=== PATIENT | male | born 1940 | race Caucasian/White ===

== ENCOUNTER 2016-11-05 06:06 | Day surgery (SDC) | payer MEDICARE, OTHER ==
[~2016-11-05] VITALS: Ht 170.2 cm; Wt 73.9 kg
[~2016-11-05 06:06] MED LIST: ACET325T9 PO; ATOR10TA60 PO; CARV3.122 PO; LISI10TA2 PO; METF500T4 PO; PRED20TA PO; UNABLE MC; VALA500T PO
[2016-11-05 06:28] LABS: BILIRUBIN,URINE NEGATIVE (NEG); GLUCOSE,URINE NEGATIVE (NEG); NITRITE,URINE NEGATIVE (NEG); PROTEIN,URINE NEGATIVE (NEG-TRACE)
[2016-11-05 06:42] LABS: BASO % 1 % (0-3); EOS % 4 % (0-3); HEMATOCRIT 39.7 % (39.0-53.0); HEMOGLOBIN 13.6 g/dL (13.0-17.5); LYMPH # 1.3 x10^3/uL (1.0-4.8); LYMPH % 24 % (24-48); MEAN CORPUSCULAR HEMOGLOBIN 31 pg (25-35); MEAN CORPUSCULAR HGB CONC 34 g/dL (31-37); MEAN CORPUSCULAR VOLUME 90 fL (79-100); MONO % 10 % (0-9); NEUT % 62 % (31-73); PLATELET COUNT 182 x10^3/uL (140-400); RED BLOOD COUNT 4.44 x10^6/uL (4.30-5.70); RED CELL DISTRIBUTION WIDTH 13.5 % (11.5-14.5); WHITE BLOOD COUNT 5.4 x10^3/uL (4.0-11.0)
[2016-11-05 06:45] LABS: BACTERIA,URINE FEW /HPF (0-FEW); RBC,URINE OCC /HPF (0-2); SQUAMOUS EPITHELIAL CELL,UR OCC /LPF
[2016-11-05 06:51] LABS: CALCIUM 8.9 mg/dL (8.5-10.1); CREATININE 1.2 mg/dL (0.7-1.3); GFR 58.9; POTASSIUM 3.9 mmol/L (3.5-5.1)
[2016-11-05] MEDS ORDERED: HYDROmorphone 2 MG/ML VIAL IV PRN (07:00)
[2016-11-05] MEDS ORDERED: LIDOCAINE 1% 1 ML SYRINGE. ID PRN (07:00)
[2016-11-05] MEDS ORDERED: PROCHLORPERAZINE 10 MG/2 ML VIAL. IV PRN (07:00)
[2016-11-05] MEDS ORDERED: IV RINGERS,LACTATED 1000ML 1,000 ML IV SCH (07:00)
[2016-11-05] MEDS ORDERED: MORPHINE SULFATE 2 MG/ML DISP.SYRIN. IV PRN (07:00)
[2016-11-05] MEDS ORDERED: ONDANSETRON PF 4 MG/2 ML VIAL. IV PRN (07:00)
[2016-11-05] MEDS ORDERED: fentaNYL PF VIAL 100 MCG/2 ML VIAL IV PRN ×2 (07:00)
[2016-11-05] MEDS ORDERED: GENTAMICIN SULFATE 80 MG in IV NORMAL SALINE 100ML 100 ML IV PRN (08:00)
[2016-11-05] MEDS ORDERED: PROPOFOL 20 ML IV ONE ×2 (08:49)
[2016-11-05] MEDS ORDERED: SEVOFLURANE 31 TO 60 MINUTES. IH ONE (08:49)
[2016-11-05] MEDS ORDERED: ONDANSETRON PF 4 MG/2 ML VIAL. ONE (08:49)
[2016-11-05] MEDS ORDERED: LIDOCAINE 2% PF Vial for OR 5 ML VIAL. ONE (08:49)
[2016-11-05] MEDS ORDERED: DEXAMETHASONE SOD PHOS 20 MG/5 ML VIAL. ONE (08:49)
--- NOTE | 2016-11-05 08:49 | PDOC ---
BRIEF OPERATIVE NOTE Date: Nov 05, 2016 Pre-Op Diagnosis Elevated PSA (9.0) Post-Op Diagnosis same Procedure Performed Trans rectal ultrasound ultrasound guided prostate biopsies Surgeon Angeles Anesthesia Type: General Specimens Obtained 12 biopsies of prostate Findings same Complications none Additional Remarks tolerated well JASMYN AJ DO Nov 05, 2016 08:49
--- NOTE | 2016-11-05 08:51 | DISCH ---
DISCHARGE INSTRUCTIONS Condition on Discharge Condition on Discharge: Stable Activity After Discharge Activity Instructions for Disc: Activity as tolerated, Avoid exertion Driving Instructions after Dis: Do not drive today Diet after Discharge Diet after Discharge: Regular Additional Diet Restrictions: increase fluids next couple days Wound Incision Care Other wound/incision instructi: expect to see blood in urine and first BM Contacting the DRMaulik after DC Call your doctor for: Concerns you may have Follow-Up Follow up with: Dr Aj will call you with results JASMYN AJ DO Nov 05, 2016 08:51
[2016-11-05 09:26] VITALS: BP 119/68
--- NOTE | 2016-11-05 10:18 | OP ---
DATE OF SURGERY: PREOPERATIVE DIAGNOSIS: Elevated PSA (9.0). POSTOPERATIVE DIAGNOSIS: Elevated PSA (9.0). PROCEDURE: Transrectal ultrasound of prostate, ultrasound-guided prostate biopsies (12). SURGEON: Jasmyn Aj DO ANESTHESIA: General. INDICATIONS AND JUDGMENT: This is a 76-year-old male with a history of an elevated PSA. Most recently, his PSA was 9.0. The percent free PSA was only 6%. Therefore, it was felt that he should undergo prostate ultrasound and needle biopsies. The procedure was explained to the patient. He appeared to understand and was agreeable. DESCRIPTION OF PROCEDURE: The patient was preloaded with IV Rocephin and 80 mg of gentamicin. He was taken to the operating room and placed on the operating room table in a supine position, given a general anesthetic and then placed in a left lateral position with his knees tucked. A well-lubricated ultrasound probe was then advanced into the rectum. The prostate was visualized in the transverse and sagittal modes. There did appear to be some hypoechoic areas. The prostate volume was measured at 21 grams. Using ultrasound guidance, prostate biopsies were performed initially on the left side of the prostate from the apex to the base and then moved a little more medially and once again a series of biopsies from the apex to the base, a total of 6 biopsies performed on the left side of the prostate. The ultrasound probe was then repositioned to visualize the right side of the prostate and ultrasound-guided biopsies were taken on the right side of the prostate from the apex to the base and then the probe was adjusted and moved medially to get another series of biopsies on the right side from the apex to the base, a total of 6 biopsies were taken on the right side of the prostate for a total of 12 biopsies. The ultrasound probe was then removed from the rectum. The biopsies were placed in formalin and sent to pathology. The patient tolerated the procedure well and was sent to recovery room in satisfactory condition. The patient has a postop instruction sheet at home. He also has Cipro antibiotics at home that he will complete. I will call him next week with the results of the prostate biopsies. JASMYN AJ DO DR: ALBERTO/janet JOB#: [id number] / [id number]
--- NOTE | 2016-11-09 16:39 | PATHOLOGY ---
PATHOLOGY REPORT * * * * * * * * FINAL DIAGNOSIS: A. Left base prostate, needle biopsy: - PROSTATIC ADENOCARCINOMA, ACINAR TYPE, GUSTAVO'S PATTERNS 4+4 (SCORE 8), SPANNING 0.1 MM. (SEE COMMENT) B. Left mid prostate, needle biopsy: - PROSTATIC ADENOCARCINOMA, ACINAR TYPE, GUSTAVO'S PATTERNS 3+3 (SCORE 6), SPANNING 1.0 MM. (SEE COMMENT) C. Left apex prostate, needle biopsy: - PROSTATIC ADENOCARCINOMA, ACINAR TYPE, GUSTAVO'S PATTERNS 4+4 (SCORE 8), SPANNING 5.0 MM. (SEE COMMENT) D. Right base prostate, needle biopsy: - PROSTATIC ADENOCARCINOMA, ACINAR TYPE, GUSTAVO'S PATTERNS 4+3 (SCORE 7), SPANNING 5.0 MM. (SEE COMMENT) E. Right mid prostate, needle biopsy: - Benign prostatic tissue. (see comment) F. Right apex prostate, needle biopsy: - PROSTATIC ADENOCARCINOMA, ACINAR TYPE, GUSTAVO'S PATTERNS 3+3 (SCORE 6), SPANNING 2.0 MM. (SEE COMMENT) - Benign colonic mucosa. (see comment) SYNOPTIC CANCER STAGING REPORT - LEFT AND RIGHT (SPECIMENS A-F) COMMENT: Specimens A-F reviewed with Dr. Raghu Henson, who agrees with the diagnoses. Marimar in Dr. Reynoso's office notified at approximately 1545 on 11/09/2016. (STEVE:[facility]; d/t: 11/09/16) REPORT ELECTRONICALLY SIGNED BY: Jg Galeano M.D. DATE/TIME: 11/09/2016 16:37 * * * * * * * * GROSS PATHOLOGY: A . Received in formalin labeled "Livanes, Kasandra, left base" are two needle cores of serrato soft tissue measuring 1.5 and 1.7 cm in length and less than 0.1 cm in diameter. The specimen is submitted entirely in cassette A1. B. Received in formalin labeled "Jakes, Kasandra, left mid" are two needle cores of serrato soft tissue measuring 1.8 and 2.0 cm in length and less than 0.1 cm in diameter. The specimen is submitted entirely in cassette B1. C. Received in formalin labeled "Jakes, Kasandra, left apex" are two needle cores of serrato soft tissue measuring 1.5 and 1.7 cm in length and less than 0.1 cm in diameter. The specimen is submitted entirely in cassette C1. D. Received in formalin labeled "Livanes, Kasandra, right base" are two needle cores of serrato soft tissue measuring 2.0 and 2.2 cm in length and less than 0.1 cm in diameter. The specimen is submitted entirely in cassette D1. E. Received in formalin labeled "Livanes, Kasandra, right mid" are two needle cores of serrato soft tissue measuring 1.5 and 2.2 cm in length and less than 0.1 cm in diameter. The specimen is submitted entirely in cassette E1. F. Received in formalin labeled "Shane, Kasandra, right apex" are two needle cores of serrato soft tissue measuring 1.5 and 1.7 cm in length and less than 0.1 cm in diameter. The specimen is submitted entirely in cassette F1. (JPM; 11/05/16) INITIAL CPT CODE(S): A; 93037 B; 51287 C; 67574 D; 07516 E; 06435 F; 39858 Professional services performed by [facility] at [address] [address] Technical services performed by [facility] at [address] [place] [address], [address], [place] [address]. SPECIMEN(S) RECEIVED: A.Left base prostate, needle biopsy B.Left mid prostate, needle biopsy C.Left apex prostate, needle biopsy D.Right base prostate, needle biopsy E.Right mid prostate, needle biopsy F.Right apex prostate, needle biopsy CLINICAL HISTORY: Elevated PSA PATIENT: KASANDRA VILLASEÑOR /AGE: 12 1940 (Age: 76) PATIENT #: [id number] ALT CASE #: SPECIMEN COLLECTION DATE: 11/05/2016 SPECIMEN RECEIVED DATE: 11/05/2016 [facility] - [address] [place] [address] - PHONE: [phone] * * * END OF REPORT * * *
== END 2016-11-05 10:10 | disposition home or self-care (01) ==
LOC: SURG 06:06
PROVIDERS: ATTEND Urology
DX: R97.20 Elevated prostate specific antigen [PSA] (principal); E78.00 Pure hypercholesterolemia, unspecified; I10 Essential (primary) hypertension; M19.90 Unspecified osteoarthritis, unspecified site; E11.9 Type 2 diabetes mellitus without complications; Z72.0 Tobacco use; Z86.69 Personal history of other diseases of the nervous system and sense organs; Z86.39 Personal history of other endocrine, nutritional and metabolic disease
CPT/HCPCS: 36415; 55700; 80048; 81001; 82962; 85027; J0690; J1100; J2405; J2704; C1887

== ENCOUNTER → 2016-11-29 | Outpatient (CLI) | payer MEDICARE, OTHER ==
[2016-11-05 09:26] VITALS: BP 119/68
[~2016-11-29] MED LIST changes: +LEUP30SY IM
--- NOTE | 2016-11-29 11:33 | RAD ---
Indication prostate malignancy. Staging. Axial images through the abdomen and pelvis were obtained. The study is limited. No IV or gastrointestinal contrast was administered. Note is made of a previous examination 11/04/2014. The lung bases are clear. The liver and spleen appear unremarkable. Cholelithiasis is noted. No adrenal or renal anomalies are seen. The pancreas appears unremarkable. An acute finding in the abdomen is not seen. There is no significant central or retroperitoneal adenopathy. In the pelvis no acute finding is seen. There is no significant adenopathy. The visualized bony structures are grossly unremarkable apart from degenerative change predominantly in the lumbar spine. If skeletal metastatic disease is clinically suspect bone scan would be useful. There is slight compression involving L1 similar to the previous exam. IMPRESSION: No acute or significant finding seen in the abdomen or pelvis PQRS Compliance Statement: One or more of the following individualized dose reduction techniques were utilized for this examination: 1. Automated exposure control 2. Adjustment of the mA and/or kV according to patient size 3. Use of iterative reconstruction technique
== END | disposition home or self-care (01) ==
LOC: CT 08:00
PROVIDERS: ATTEND Urology
DX: C61 Malignant neoplasm of prostate (principal)
CPT/HCPCS: 74176

== ENCOUNTER → 2016-12-21 | Outpatient (CLI) | payer MEDICARE, OTHER ==
[~2016-12-21] VITALS: Ht 170.2 cm; Wt 71.7 kg
[2016-12-21 10:22] VITALS: BP 122/75
--- NOTE | 2016-12-21 13:05 | RAD ---
Ultrasound-guided prostate fiducial marker placements, 12/21/2016: History: Prostate cancer Utilizing sonographic guidance and a transrectal approach, 3 Civco prostate fiducial markers were placed. The first marker was placed superiorly in the left lobe of the gland. The second marker was placed inferiorly in the left lobe of the gland. The third marker was placed centrally in the right lobe of the gland. The patient tolerated the procedure well and left the department in good condition. He is to follow up with Dr. Ambrose.
== END | disposition home or self-care (01) ==
LOC: US 09:50
PROVIDERS: ATTEND Radiology Radiation Oncology
DX: C61 Malignant neoplasm of prostate (principal)
CPT/HCPCS: 55876; 77387

== ENCOUNTER 2017-12-04 20:49 | Emergency (ER) | payer MEDICARE, OTHER ==
[2017-12-04] MEDS: DIPHTH,PERTUSS(ACELL),TET TOX 0.5 ML DISP.SYRIN. VAX IM (21:19)
== END 2017-12-04 21:30 | disposition home or self-care (01) ==
LOC: ER 21:30
DX: S80.862A Insect bite (nonvenomous), left lower leg, initial encounter (principal); I10 Essential (primary) hypertension; E11.9 Type 2 diabetes mellitus without complications; I25.2 Old myocardial infarction; W57.XXXA Bitten or stung by nonvenomous insect and other nonvenomous arthropods, initial encounter; Y93.89 Activity, other specified; Y99.8 Other external cause status; Y92.89 Other specified places as the place of occurrence of the external cause
CPT/HCPCS: 90471; 90715; 99283-25

== ENCOUNTER → 2018-02-16 | Day surgery (SDC) | payer MEDICARE, OTHER ==
[~2018-02-16] MED LIST changes: +ASPI-630 PO; +DOXY100C2 PO; +IV RINGERS,LACTATED 1000ML 1,000 ML IV SCH; +LIDOCAINE 1% PF 2 ML VIAL. ID PRN; +METF10007 PO; +METF500T16 PO; -METF500T4 PO; +MIDAZOLAM HCL/PF 2 MG/2 ML VIAL. IV PRN; +NAPR1TAB25 PO; +PROPOFOL 20 ML IV ONE; +TAMS0.4C97 PO; +ePHEDrine PF IN SALINE 50 MG/5 ML DISP.SYRIN IV ONE; +fentaNYL PF VIAL 100 MCG/2 ML VIAL IV PRN
[2018-02-16 13:35] VITALS: BP 117/58
== END | disposition home or self-care (01) ==
LOC: ENDOS 11:13
PROVIDERS: ATTEND Internal Medicine Gastroenterology
DX: K57.30 Diverticulosis of large intestine without perforation or abscess without bleeding (principal); K64.1 Second degree hemorrhoids; K55.21 Angiodysplasia of colon with hemorrhage; E11.9 Type 2 diabetes mellitus without complications; I25.10 Atherosclerotic heart disease of native coronary artery without angina pectoris; Z85.46 Personal history of malignant neoplasm of prostate; Z98.890 Other specified postprocedural states; Z79.84 Long term (current) use of oral hypoglycemic drugs; Z79.899 Other long term (current) drug therapy
CPT/HCPCS: 45378; J2704

== ENCOUNTER 2019-01-28 12:27 | Inpatient (IN) | payer MEDICARE, OTHER ==
[~2019-01-28] VITALS: Ht 162.6 cm; Wt 69.9 kg
[~2019-01-28 12:27] MED LIST changes: +CARV3.1210 PO; -CARV3.122 PO; +FINA5TAB4 PO; +HYDR25SU18 RC; -IV RINGERS,LACTATED 1000ML 1,000 ML IV SCH; -LIDOCAINE 1% PF 2 ML VIAL. ID PRN; -MIDAZOLAM HCL/PF 2 MG/2 ML VIAL. IV PRN; -PROPOFOL 20 ML IV ONE; +SENN8.6T99 PO; -ePHEDrine PF IN SALINE 50 MG/5 ML DISP.SYRIN IV ONE; -fentaNYL PF VIAL 100 MCG/2 ML VIAL IV PRN
[2019-01-28 13:10] LABS: BASO % 1 % (0-3); EOS # 0.2 x10^3/uL (0.0-0.7); EOS % 4 % (0-3); HEMOGLOBIN 12.4 g/dL (13.0-17.5); LYMPH % 22 % (24-48); MEAN CORPUSCULAR HEMOGLOBIN 30 pg (25-35); MEAN CORPUSCULAR HGB CONC 34 g/dL (31-37); MEAN CORPUSCULAR VOLUME 88 fL (79-100); MONO # 0.4 x10^3/uL (0.0-1.1); MONO % 9 % (0-9); NEUT # 3.1 x10^3/uL (1.8-7.7); NEUT % 64 % (31-73); PLATELET COUNT 204 x10^3/uL (140-400); RED BLOOD COUNT 4.09 x10^6/uL (4.30-5.70); RED CELL DISTRIBUTION WIDTH 14.6 % (11.5-14.5); WHITE BLOOD COUNT 4.8 x10^3/uL (4.0-11.0)
[2019-01-28 13:23] LABS: PROTHROMBIN TIME PATIENT 13.3 SEC (11.7-14.0)
[2019-01-28 13:25] LABS: CREATININE 1.2 mg/dL (0.7-1.3); GFR 58.6; POTASSIUM 4.1 mmol/L (3.5-5.1)
[2019-01-28 13:31] LABS: ALBUMIN 3.9 g/dL (3.4-5.0); DIRECT BILIRUBIN 0.1 mg/dL (0.0-0.2); TOTAL BILIRUBIN 0.6 mg/dL (0.2-1.0); TOTAL PROTEIN 7.1 g/dL (6.4-8.2)
[2019-01-28 13:46] LABS: BILIRUBIN,URINE NEGATIVE (NEG); COLOR,URINE YELLOW; NITRITE,URINE NEGATIVE (NEG); PH,URINE 7.5; PROTEIN,URINE NEGATIVE (NEG-TRACE); UROBILINOGEN,URINE 0.2 mg/dL (0.2 mg/dL)
[2019-01-28 13:54] LABS: CLARITY,URINE CLEAR
[2019-01-28 13:55] LABS: BACTERIA,URINE 0 /HPF (0-FEW); RBC,URINE 0 /HPF (0-2); SQUAMOUS EPITHELIAL CELL,UR OCC /LPF; WBC,URINE 0 /HPF (0-4)
[2019-01-28] MEDS ORDERED: ONDANSETRON PF 4 MG/2 ML VIAL. IV PRN (14:30)
[2019-01-28] MEDS ORDERED: MORPHINE SULFATE 2 MG/ML VIAL. IV PRN (14:30)
--- NOTE | 2019-01-28 14:49 | PHYS DOC ---
Past Medical History Past Medical History: CAD, Diabetes-Type II, High Cholesterol, Hypertension, TB Additional Past Medical Histor: prostate ca in remission. las radiation tx in june. Past Surgical History: Pacemaker, Tonsillectomy Additional Past Surgical Histo: back x 2,neck "broke" Alcohol Use: Occasionally Drug Use: None Adult General Chief Complaint Chief Complaint: BLOODY STOOL HPI HPI 70-year-old male presenting with bloody stools. He has a history of radiation proctitis and has had bleeding for a year intermittently however over the past 48 hours his bleeding became "way worse". He states that he is losing all his strength. He reports having a colonoscopy that showed burn lu from the radiation. Location GI tract. Duration intermittent. Review of systems is negative for chest pain shortness of breath nausea vomiting fevers or chills. All other review of systems is negative. ED course: 78-year-old male presenting to the emergency department today with worsening bloody stools. On arrival vital signs are unremarkable. Blood work shows hemoglobin of 12.4 which is about baseline for the patient. Otherwise remainder the blood work is unremarkable. Given the amount of bleeding the patient describes at home in conjunction with discussing with primary physician and we will admit the patient for observation to monitor him. Both Dr. Colbert who accepted patient for admission. Current Medications Current Medications Current Medications Medications (Trade) Dose Ordered Sig/Dominique Start Time Stop Time Status Last Admin Dose Admin Morphine Sulfate (Morphine Sulfate) 2 mg PRN Q2HR PRN 01/28/19 14:30 01/29/19 14:29 Ondansetron HCl (Zofran) 4 mg PRN Q8HRS PRN 01/28/19 14:30 01/29/19 14:29 Allergies Allergies Allergies Coded Allergies Type Severity Reaction Last Updated Verified No Known Drug Allergies 02/16/18 No Physical Exam Physical Exam Constitutional: Well developed, well nourished, no acute distress, non-toxic appearance. [] HENT: Normocephalic, atraumatic, bilateral external ears normal, oropharynx moist, no oral exudates, nose normal. [] Eyes: PERRLA, EOMI, conjunctiva normal, no discharge. [] Neck: Normal range of motion, no tenderness, supple, no stridor. [] Cardiovascular:Heart rate regular rhythm, no murmur [] Lungs & Thorax: Bilateral breath sounds clear to auscultation [] Abdomen: Bowel sounds normal, soft, no tenderness, no masses, no pulsatile masses. [] Skin: Warm, dry, no erythema, no rash. [] Back: No tenderness, no CVA tenderness. [] Extremities: No tenderness, no cyanosis, no clubbing, ROM intact, no edema. [] Neurologic: Alert and oriented X 3, normal motor function, normal sensory functi on, no focal deficits noted. [] Psychologic: Affect normal, judgement normal, mood normal. [] Current Patient Data Vital Signs Vital Signs Date Time Temp Pulse Resp B/P (MAP) Pulse Ox O2 Delivery O2 Flow Rate FiO2 01/28/19 12:55 98.4 80 18 171/83 (112) 98 Room Air 98.4 Lab Values Laboratory Tests Test 01/28/19 12:55 01/28/19 13:35 White Blood Count 4.8 x10^3/uL (4.0-11.0) Red Blood Count 4.09 x10^6/uL (4.30-5.70) L Hemoglobin 12.4 g/dL (13.0-17.5) L Hematocrit 36.0 % (39.0-53.0) L Mean Corpuscular Volume 88 fL (79-100) Mean Corpuscular Hemoglobin 30 pg (25-35) Mean Corpuscular Hemoglobin Concent 34 g/dL (31-37) Red Cell Distribution Width 14.6 % (11.5-14.5) H Platelet Count 204 x10^3/uL (140-400) Neutrophils (%) (Auto) 64 % (31-73) Lymphocytes (%) (Auto) 22 % (24-48) L Monocytes (%) (Auto) 9 % (0-9) Eosinophils (%) (Auto) 4 % (0-3) H Basophils (%) (Auto) 1 % (0-3) Neutrophils # (Auto) 3.1 x10^3/uL (1.8-7.7) Lymphocytes # (Auto) 1.0 x10^3/uL (1.0-4.8) Monocytes # (Auto) 0.4 x10^3/uL (0.0-1.1) Eosinophils # (Auto) 0.2 x10^3/uL (0.0-0.7) Basophils # (Auto) 0.0 x10^3/uL (0.0-0.2) Prothrombin Time 13.3 SEC (11.7-14.0) Prothrombin Time INR 1.0 (0.8-1.1) Activated Partial Thromboplast Time 27 SEC (24-38) Sodium Level 143 mmol/L (136-145) Potassium Level 4.1 mmol/L (3.5-5.1) Chloride Level 105 mmol/L (98-107) Carbon Dioxide Level 27 mmol/L (21-32) Anion Gap 11 (6-14) Blood Urea Nitrogen 25 mg/dL (8-26) Creatinine 1.2 mg/dL (0.7-1.3) Estimated GFR (Cockcroft-Gault) 58.6 Glucose Level 148 mg/dL (70-99) H Calcium Level 9.0 mg/dL (8.5-10.1) Total Bilirubin 0.6 mg/dL (0.2-1.0) Direct Bilirubin 0.1 mg/dL (0.0-0.2) Aspartate Amino Transferase (AST) 18 U/L (15-37) Alanine Aminotransferase (ALT) 29 U/L (16-63) Alkaline Phosphatase 66 U/L (46-116) Total Protein 7.1 g/dL (6.4-8.2) Albumin 3.9 g/dL (3.4-5.0) Urine Collection Type Void Urine Color Yellow Urine Clarity Clear Urine pH 7.5 Urine Specific [place] 1.015 Urine Protein Negative mg/dL (NEG-TRACE) Urine Glucose (UA) Negative mg/dL (NEG) Urine Ketones (Stick) Negative mg/dL (NEG) Urine Blood Negative (NEG) Urine Nitrite Negative (NEG) Urine Bilirubin Negative (NEG) Urine Urobilinogen Dipstick 0.2 mg/dL (0.2 mg/dL) Urine Leukocyte Esterase Negative (NEG) Urine RBC 0 /HPF (0-2) Urine WBC 0 /HPF (0-4) Urine Squamous Epithelial Cells Occ /LPF Urine Bacteria 0 /HPF (0-FEW) Laboratory Tests 01/28/19 12:55 Laboratory Tests 01/28/19 12:55 EKG EKG [] Radiology/Procedures Radiology/Procedures [] Course & Med Decision Making Course & Med Decision Making Pertinent Labs and Imaging studies reviewed. (See chart for details) [] Dragon Disclaimer Dragon Disclaimer This electronic medical record was generated, in whole or in part, using a voice recognition dictation system. Departure Departure Impression: Primary Impression: GI bleed Disposition: ADMITTED INPATIENT Admitting Physician: Nataliya Colbert Condition: STABLE Referrals: Carlos COLBERT MD (PCP) PATTI WILLS MD Jan 28, 2019 14:49
[2019-01-28 19:50] VITALS: BP 120/67
[2019-01-28 22:49] LABS: FECAL OB PT POSITIVE (NEG)
[2019-01-28 23:20] VITALS: BP 110/71
[2019-01-29 03:21] VITALS: BP 99/55
[2019-01-29 05:03] LABS: BASO % 1 % (0-3); EOS # 0.2 x10^3/uL (0.0-0.7); EOS % 5 % (0-3); HEMATOCRIT 34.5 % (39.0-53.0); HEMOGLOBIN 12.1 g/dL (13.0-17.5); LYMPH # 1.2 x10^3/uL (1.0-4.8); LYMPH % 26 % (24-48); MEAN CORPUSCULAR HEMOGLOBIN 31 pg (25-35); MEAN CORPUSCULAR HGB CONC 35 g/dL (31-37); MEAN CORPUSCULAR VOLUME 87 fL (79-100); MONO # 0.4 x10^3/uL (0.0-1.1); MONO % 10 % (0-9); NEUT # 2.6 x10^3/uL (1.8-7.7); NEUT % 58 % (31-73); PLATELET COUNT 175 x10^3/uL (140-400); RED BLOOD COUNT 3.95 x10^6/uL (4.30-5.70); RED CELL DISTRIBUTION WIDTH 14.4 % (11.5-14.5); WHITE BLOOD COUNT 4.4 x10^3/uL (4.0-11.0)
[2019-01-29 05:15] LABS: CALCIUM 9.1 mg/dL (8.5-10.1); CREATININE 1.1 mg/dL (0.7-1.3); GFR 64.7; POTASSIUM 4.1 mmol/L (3.5-5.1)
[2019-01-29 07:52] VITALS: BP 115/65
[2019-01-29 10:56] VITALS: BP 109/68
--- NOTE | 2019-01-29 11:55 | PDOC2 ---
CONSULT Date of Consult Date of Consult DATE: 01/29/19 TIME: 11:53 Reason for Consult Reason for Consult: Rectal bleeding/hx radiation proctitis Social History ALCOHOL: occassional Drugs: None Current Problem List Problem List Problems Medical Problems: (1) GI bleed Status: Acute Current Medications Current Medications Current Medications Ondansetron HCl (Zofran) 4 mg PRN Q8HRS PRN IV NAUSEA/VOMITING; Start 01/28/19 at 14:30; Stop 01/29/19 at 14:29 Morphine Sulfate (Morphine Sulfate) 2 mg PRN Q2HR PRN IV PAIN; Start 01/28/19 at 14:30; Stop 01/29/19 at 14:29 Atorvastatin Calcium (Lipitor) 10 mg HS PO ; Start 01/29/19 at 21:00 Finasteride (Proscar) 5 mg HS PO ; Start 01/29/19 at 21:00 Sennosides (Senna) 8.6 mg DAILY PO ; Start 01/29/19 at 12:00 Metformin HCl (Glucophage) 1,000 mg DAILYWSUP PO ; Start 01/29/19 at 17:00 Active Scripts Active Reported Senokot (Sennosides) 8.6 Mg Tablet 8.6 Mg PO DAILY Lisinopril 10 Mg Tablet 10 Mg PO DAILY Finasteride 5 Mg Tablet 5 Mg PO HS Metformin Hcl 1,000 Mg Tablet 1,000 Mg PO DAILYWSUP Atorvastatin Calcium 10 Mg Tablet 10 Mg PO HS Allergies Allergies: Coded Allergies: No Known Drug Allergies (Unverified , 02/16/18) Vitals VITALS Vital Signs Date Time Temp Pulse Resp B/P (MAP) Pulse Ox O2 Delivery O2 Flow Rate FiO2 01/29/19 10:56 98.3 90 18 109/68 (82) 97 Room Air 98.3 Labs Labs Laboratory Tests Test 01/28/19 12:55 01/28/19 13:35 01/28/19 20:41 01/28/19 22:35 White Blood Count 4.8 x10^3/uL (4.0-11.0) Red Blood Count 4.09 x10^6/uL (4.30-5.70) Hemoglobin 12.4 g/dL (13.0-17.5) Hematocrit 36.0 % (39.0-53.0) Mean Corpuscular Volume 88 fL (79-100) Mean Corpuscular Hemoglobin 30 pg (25-35) Mean Corpuscular Hemoglobin Concent 34 g/dL (31-37) Red Cell Distribution Width 14.6 % (11.5-14.5) Platelet Count 204 x10^3/uL (140-400) Neutrophils (%) (Auto) 64 % (31-73) Lymphocytes (%) (Auto) 22 % (24-48) Monocytes (%) (Auto) 9 % (0-9) Eosinophils (%) (Auto) 4 % (0-3) Basophils (%) (Auto) 1 % (0-3) Neutrophils # (Auto) 3.1 x10^3/uL (1.8-7.7) Lymphocytes # (Auto) 1.0 x10^3/uL (1.0-4.8) Monocytes # (Auto) 0.4 x10^3/uL (0.0-1.1) Eosinophils # (Auto) 0.2 x10^3/uL (0.0-0.7) Basophils # (Auto) 0.0 x10^3/uL (0.0-0.2) Prothrombin Time 13.3 SEC (11.7-14.0) Prothromb Time International Ratio 1.0 (0.8-1.1) Activated Partial Thromboplast Time 27 SEC (24-38) Sodium Level 143 mmol/L (136-145) Potassium Level 4.1 mmol/L (3.5-5.1) Chloride Level 105 mmol/L (98-107) Carbon Dioxide Level 27 mmol/L (21-32) Anion Gap 11 (6-14) Blood Urea Nitrogen 25 mg/dL (8-26) Creatinine 1.2 mg/dL (0.7-1.3) Estimated GFR (Cockcroft-Gault) 58.6 Glucose Level 148 mg/dL (70-99) Calcium Level 9.0 mg/dL (8.5-10.1) Total Bilirubin 0.6 mg/dL (0.2-1.0) Direct Bilirubin 0.1 mg/dL (0.0-0.2) Aspartate Amino Transf (AST/SGOT) 18 U/L (15-37) Alanine Aminotransferase (ALT/SGPT) 29 U/L (16-63) Alkaline Phosphatase 66 U/L (46-116) Total Protein 7.1 g/dL (6.4-8.2) Albumin 3.9 g/dL (3.4-5.0) Urine Collection Type Void Urine Color Yellow Urine Clarity Clear Urine pH 7.5 Urine Specific [place] 1.015 Urine Protein Negative mg/dL (NEG-TRACE) Urine Glucose (UA) Negative mg/dL (NEG) Urine Ketones (Stick) Negative mg/dL (NEG) Urine Blood Negative (NEG) Urine Nitrite Negative (NEG) Urine Bilirubin Negative (NEG) Urine Urobilinogen Dipstick 0.2 mg/dL (0.2 mg/dL) Urine Leukocyte Esterase Negative (NEG) Urine RBC 0 /HPF (0-2) Urine WBC 0 /HPF (0-4) Urine Squamous Epithelial Cells Occ /LPF Urine Bacteria 0 /HPF (0-FEW) Glucose (Fingerstick) 101 mg/dL (70-99) Stool Occult Blood Positive (NEG) Test 01/29/19 04:15 01/29/19 07:37 White Blood Count 4.4 x10^3/uL (4.0-11.0) Red Blood Count 3.95 x10^6/uL (4.30-5.70) Hemoglobin 12.1 g/dL (13.0-17.5) Hematocrit 34.5 % (39.0-53.0) Mean Corpuscular Volume 87 fL (79-100) Mean Corpuscular Hemoglobin 31 pg (25-35) Mean Corpuscular Hemoglobin Concent 35 g/dL (31-37) Red Cell Distribution Width 14.4 % (11.5-14.5) Platelet Count 175 x10^3/uL (140-400) Neutrophils (%) (Auto) 58 % (31-73) Lymphocytes (%) (Auto) 26 % (24-48) Monocytes (%) (Auto) 10 % (0-9) Eosinophils (%) (Auto) 5 % (0-3) Basophils (%) (Auto) 1 % (0-3) Neutrophils # (Auto) 2.6 x10^3/uL (1.8-7.7) Lymphocytes # (Auto) 1.2 x10^3/uL (1.0-4.8) Monocytes # (Auto) 0.4 x10^3/uL (0.0-1.1) Eosinophils # (Auto) 0.2 x10^3/uL (0.0-0.7) Basophils # (Auto) 0.0 x10^3/uL (0.0-0.2) Sodium Level 142 mmol/L (136-145) Potassium Level 4.1 mmol/L (3.5-5.1) Chloride Level 106 mmol/L (98-107) Carbon Dioxide Level 27 mmol/L (21-32) Anion Gap 9 (6-14) Blood Urea Nitrogen 22 mg/dL (8-26) Creatinine 1.1 mg/dL (0.7-1.3) Estimated GFR (Cockcroft-Gault) 64.7 Glucose Level 127 mg/dL (70-99) Calcium Level 9.1 mg/dL (8.5-10.1) Glucose (Fingerstick) 121 mg/dL (70-99) Laboratory Tests Test 01/28/19 12:55 01/28/19 13:35 01/28/19 20:41 01/28/19 22:35 White Blood Count 4.8 x10^3/uL (4.0-11.0) Red Blood Count 4.09 x10^6/uL (4.30-5.70) Hemoglobin 12.4 g/dL (13.0-17.5) Hematocrit 36.0 % (39.0-53.0) Mean Corpuscular Volume 88 fL (79-100) Mean Corpuscular Hemoglobin 30 pg (25-35) Mean Corpuscular Hemoglobin Concent 34 g/dL (31-37) Red Cell Distribution Width 14.6 % (11.5-14.5) Platelet Count 204 x10^3/uL (140-400) Neutrophils (%) (Auto) 64 % (31-73) Lymphocytes (%) (Auto) 22 % (24-48) Monocytes (%) (Auto) 9 % (0-9) Eosinophils (%) (Auto) 4 % (0-3) Basophils (%) (Auto) 1 % (0-3) Neutrophils # (Auto) 3.1 x10^3/uL (1.8-7.7) Lymphocytes # (Auto) 1.0 x10^3/uL (1.0-4.8) Monocytes # (Auto) 0.4 x10^3/uL (0.0-1.1) Eosinophils # (Auto) 0.2 x10^3/uL (0.0-0.7) Basophils # (Auto) 0.0 x10^3/uL (0.0-0.2) Prothrombin Time 13.3 SEC (11.7-14.0) Prothromb Time International Ratio 1.0 (0.8-1.1) Activated Partial Thromboplast Time 27 SEC (24-38) Sodium Level 143 mmol/L (136-145) Potassium Level 4.1 mmol/L (3.5-5.1) Chloride Level 105 mmol/L (98-107) Carbon Dioxide Level 27 mmol/L (21-32) Anion Gap 11 (6-14) Blood Urea Nitrogen 25 mg/dL (8-26) Creatinine 1.2 mg/dL (0.7-1.3) Estimated GFR (Cockcroft-Gault) 58.6 Glucose Level 148 mg/dL (70-99) Calcium Level 9.0 mg/dL (8.5-10.1) Total Bilirubin 0.6 mg/dL (0.2-1.0) Direct Bilirubin 0.1 mg/dL (0.0-0.2) Aspartate Amino Transf (AST/SGOT) 18 U/L (15-37) Alanine Aminotransferase (ALT/SGPT) 29 U/L (16-63) Alkaline Phosphatase 66 U/L (46-116) Total Protein 7.1 g/dL (6.4-8.2) Albumin 3.9 g/dL (3.4-5.0) Urine Collection Type Void Urine Color Yellow Urine Clarity Clear Urine pH 7.5 Urine Specific [place] 1.015 Urine Protein Negative mg/dL (NEG-TRACE) Urine Glucose (UA) Negative mg/dL (NEG) Urine Ketones (Stick) Negative mg/dL (NEG) Urine Blood Negative (NEG) Urine Nitrite Negative (NEG) Urine Bilirubin Negative (NEG) Urine Urobilinogen Dipstick 0.2 mg/dL (0.2 mg/dL) Urine Leukocyte Esterase Negative (NEG) Urine RBC 0 /HPF (0-2) Urine WBC 0 /HPF (0-4) Urine Squamous Epithelial Cells Occ /LPF Urine Bacteria 0 /HPF (0-FEW) Glucose (Fingerstick) 101 mg/dL (70-99) Stool Occult Blood Positive (NEG) Test 01/29/19 04:15 01/29/19 07:37 White Blood Count 4.4 x10^3/uL (4.0-11.0) Red Blood Count 3.95 x10^6/uL (4.30-5.70) Hemoglobin 12.1 g/dL (13.0-17.5) Hematocrit 34.5 % (39.0-53.0) Mean Corpuscular Volume 87 fL (79-100) Mean Corpuscular Hemoglobin 31 pg (25-35) Mean Corpuscular Hemoglobin Concent 35 g/dL (31-37) Red Cell Distribution Width 14.4 % (11.5-14.5) Platelet Count 175 x10^3/uL (140-400) Neutrophils (%) (Auto) 58 % (31-73) Lymphocytes (%) (Auto) 26 % (24-48) Monocytes (%) (Auto) 10 % (0-9) Eosinophils (%) (Auto) 5 % (0-3) Basophils (%) (Auto) 1 % (0-3) Neutrophils # (Auto) 2.6 x10^3/uL (1.8-7.7) Lymphocytes # (Auto) 1.2 x10^3/uL (1.0-4.8) Monocytes # (Auto) 0.4 x10^3/uL (0.0-1.1) Eosinophils # (Auto) 0.2 x10^3/uL (0.0-0.7) Basophils # (Auto) 0.0 x10^3/uL (0.0-0.2) Sodium Level 142 mmol/L (136-145) Potassium Level 4.1 mmol/L (3.5-5.1) Chloride Level 106 mmol/L (98-107) Carbon Dioxide Level 27 mmol/L (21-32) Anion Gap 9 (6-14) Blood Urea Nitrogen 22 mg/dL (8-26) Creatinine 1.1 mg/dL (0.7-1.3) Estimated GFR (Cockcroft-Gault) 64.7 Glucose Level 127 mg/dL (70-99) Calcium Level 9.1 mg/dL (8.5-10.1) Glucose (Fingerstick) 121 mg/dL (70-99) Assessment/Plan Assessment/Plan Recurrent hematochezia- most likely secondary to radiation proctitis and/or hemorrhoids with prior colonoscopy in past year Plan anusol suppositories as o/p increased fiber Full note dictated SEN OVIEDO MD Jan 29, 2019 11:55
[2019-01-29] MEDS ORDERED: SENNOSIDES 8.6 MG TABLET PO SCH (12:00)
--- NOTE | 2019-01-29 12:08 | HP ---
ADMIT DATE: 01/29/2019 HISTORY AND PHYSICAL AND DISCHARGE SUMMARY ADMISSION DIAGNOSIS: Gastrointestinal bleed. DISCHARGE DIAGNOSIS: Gastrointestinal bleed. HISTORY OF PRESENT ILLNESS: This is a 78-year-old white male with a history of radiation proctitis. He has had intermittent bleeding over the past year, requiring several hospitalizations, who noticed bleeding over the last 48 hours that became "way worse." He felt like he was losing his strength and talk to his daughter and she convinced him to come to the Emergency Room. He was seen in the ER. Everything looks stable with a hemoglobin of 12.4, but because of the large amount of bleeding, the patient described at home. He was brought in for overnight observation. He has not had a bowel movement since admission. His hemoglobin dropped to 12.1 overnight. He is hungry and wants to eat. He does state that his last bowel movement was watery. He also describes some dark colored stools. He really does not describe any bright red lower GI type bleeding. He does not describe any epigastric pain or upper GI symptoms though. He has severe osteoarthritis, but does not take NSAIDs. PAST MEDICAL HISTORY: Significant for coronary artery disease, type 2 diabetes, hypertension, hyperlipidemia, and prostate cancer in remission, but status post radiation treatment. PAST SURGICAL HISTORY: Include pacemaker, tonsillectomy and back surgery x 2. FAMILY HISTORY: Noncontributory. SOCIAL HISTORY: Occasional alcohol. No tobacco and no drug use. ALLERGIES: He has no known drug allergies. HOME MEDICATIONS: Include atorvastatin 10 mg, lisinopril 10 mg, Senokot daily, metformin 1000 mg with dinner, and finasteride 5 mg at bedtime. REVIEW OF SYSTEMS: HEENT: Negative. CONSTITUTIONAL: No fever, chills or night sweats. CARDIAC: No chest pain. PULMONARY: No cough or shortness of breath. GASTROINTESTINAL: As above. GENITOURINARY: No trouble urinating. MUSCULOSKELETAL: He has chronic arthritic aches and pains, but no acute synovitis or effusions. SKIN: No bruising or lesions. NEUROLOGIC: No headaches or tremor. PSYCHIATRIC: No depression. Sleeping well. PHYSICAL EXAMINATION: VITAL SIGNS: Stable. Blood pressure dropped as low as 99/55 at 3:21 this a.m. GENERAL: He is alert and oriented and in no acute distress. HEENT: He is wearing his glasses. Conjunctivae are clear. There is no conjunctival pallor. Mucous membranes are moist. NECK: Supple. HEART: Regular rate and rhythm. LUNGS: Clear to auscultation. ABDOMEN: Soft, nondistended, and nontender. There is no epigastric pain. There are no masses. There is no lower quadrant tenderness. SKIN: Color and turgor are normal. Capillary is normal. Skin is without any bruising. MUSCULOSKELETAL: Arthritic changes of his joints are prominent, but his joints are quite functional. Strength is normal. LABORATORY DATA: Initial hemoglobin of 12.4, dropped to 12.1 overnight. Differentials unremarkable. White count is normal. Coags are unremarkable. INR is 1.0. Chemistries are unremarkable other than a glucose elevated at 148 and subsequent readings of 101, 127 and 121. Chemistries are unremarkable. Urinalysis is unremarkable. Stool occult blood was positive though. No imaging studies were done. ASSESSMENT: Gastrointestinal bleed due to radiation proctitis. No evidence of a significant bleed. He does not have any upper gastrointestinal symptoms, although his history is somewhat suggestive of possible upper gastrointestinal bleeding. PLAN: He is stable for discharge. We can continue additional workup if needed as an outpatient. His home meds will be resumed. He will be given a diet to eat and monitored for further bleeding. W Gilson COLBERT MD DR: GHADA/janet JOB#: [id number] / [id number]
--- NOTE | 2019-01-29 12:10 | PDOC ---
Provider Note Provider Note combined H&P and discharge summary dictated, # [id number] Carlos COLBERT MD Jan 29, 2019 12:10
--- NOTE | 2019-01-29 12:51 | NUR ---
Discharge Note: KASANDRA VILLASEÑOR [address] [place] [address] Discharge instructions and discharge home medications reviewed with Patient and a copy given. All questions have been answered and understanding verbalized. The following instructions and handouts were given: FOLLOW UP INSTRUCTIONS, MEDICATION LISTS, AND ACTIVITY LEVELS. Discontinued lines and drains: Peripheral IV DISCONTINUED AND CATHETER intact. Patient discharged to Home or Self Care with Family Member via Wheelchair
[2019-01-29] MEDS ORDERED: metFORMIN 500 MG TABLET PO SCH (17:00)
[2019-01-29] MEDS ORDERED: FINASTERIDE 5 MG TABLET. PO SCH (21:00)
[2019-01-29] MEDS ORDERED: ATORVASTATIN CALCIUM 10 MG TABLET. PO SCH (21:00)
--- NOTE | 2019-01-29 21:50 | CONS ---
DATE OF CONSULTATION: 01/29/2019 REFERRING PHYSICIAN: Carlos Ayers MD REASON FOR CONSULTATION: Rectal bleeding. HISTORY OF PRESENT ILLNESS: A 78-year-old male with past medical history significant for prostate cancer, status post radiation therapy as well as diabetes, hypertension, hyperlipidemia, previous pacemaker, tonsillectomy, back surgery, neck surgery and coronary artery disease is readmitted to [facility] with recurrent rectal bleeding, has had radiation proctitis documented by previous endoscopy. Topical therapy with Cortenema has not been particularly helpful. He has found recently that increasing his fiber does seem to work. Blood counts have gone from 12 to 12.1. He is otherwise hemodynamically stable, having no additional pain or diarrhea at this time. He does wish to advance his diet and be released if possible. PAST MEDICAL HISTORY: Organic heart disease, hyperlipidemia, diabetes, prostate cancer, status post radiation, status post pacemaker placement, status post tonsillectomy. ALLERGIES: None. MEDICATIONS: Presently include Proscar, Lipitor, Glucophage, senna, morphine and Zofran. FAMILY AND SOCIAL HISTORY: Nondrinker, nonsmoker: He is retired. REVIEW OF SYSTEMS: Per records. PHYSICAL EXAMINATION: GENERAL: Reveals a well-nourished, well-developed male who is alert, cooperative, in no acute distress. VITAL SIGNS: Temperature is 98.3, pulse 90, respiratory rate 18, blood pressure is 109/68. HEENT: Reveals normocephalic, atraumatic head. Pupils and extraocular muscles are not tested. Sclerae anicteric. NECK: Supple. LUNGS: Clear. CARDIOVASCULAR: Reveals an S1, S2 without S3, S4 or appreciable murmur. ABDOMEN: Reveals a soft abdomen, normal bowel sounds, without appreciable hepatosplenomegaly. EXTREMITIES: Reveals no cyanosis, clubbing or edema. LABORATORY STUDIES: Hemoglobin 12 on admission, now 12.1; white count 4.8, now 4.4; platelet count 175,000. The INR is 1. Sodium 143, potassium 4.1, chloride 105, bicarbonate 27, BUN 25, creatinine 1.2, glucose 148, calcium 9.0, total bilirubin 0.6, direct bilirubin 0.1, AST of 18, ALT of 19, alkaline phosphatase 66, total protein 7.1, albumin 3.9. IMPRESSION: Rectal bleeding with history of previous radiation therapy, most likely secondary to radiation proctitis in view of previous workup including colonoscopy in the past year. We will recommend topical therapy as needed with Anusol suppositories and increase fibers. Previous topical enemas including Cortenema have been unhelpful. SEN OVIEDO MD DR: REED/janet JOB#: [id number] / [id number] Carlos Galvan MD
--- NOTE | 2019-01-30 16:37 | EKG ---
[facility] [address] [place] [address] Test Date: 2019-01-28 Test Time: 12:54:00 Pat Name: KASANDRA VILLASEÑOR Department: Room: 8 1 Gender: M Supervisor [employer]: : 1940 Requested By: Carlos COLBERT Order Number: [id number] Reading MD: Measurements Intervals [place] Rate: 111 P: OR: QRS: -5 QRSD: 82 T: 3 QT: 370 QTc: 507 Interpretive Statements IRREGULAR RHYTHM, NO P-WAVE FOUND VENTRICULAR PREMATURE COMPLEX(ES) LEFTWARD AXIS ABNORMAL ECG RI6.01 No previous ECG available for comparison
== END 2019-01-29 12:40 | disposition home or self-care (01) | DRG 394 ==
LOC: ER 12:27 → ED HOLD 14:29 → 6 SOUTH 17:10 → OBSVTOIN 23:49
PROVIDERS: ADMIT Family Medicine; ATTEND Family Medicine
DX: K62.7 Radiation proctitis (principal); K62.5 Hemorrhage of anus and rectum; E11.9 Type 2 diabetes mellitus without complications; E78.00 Pure hypercholesterolemia, unspecified; E78.5 Hyperlipidemia, unspecified; I10 Essential (primary) hypertension; I25.10 Atherosclerotic heart disease of native coronary artery without angina pectoris; M19.90 Unspecified osteoarthritis, unspecified site; Z85.46 Personal history of malignant neoplasm of prostate; Z92.3 Personal history of irradiation; Z95.0 Presence of cardiac pacemaker
CPT/HCPCS: 36415; 80048; 80076; 81001; 82274; 82962; 85025; 85610; 85730; 86850; 86900; 86901; 93005; G0378; G0379; 99285-25

== ENCOUNTER 2019-10-24 12:27 | Emergency (ER) | payer MEDICARE, OTHER ==
[~2019-10-24] VITALS: Ht 162.6 cm; Wt 73.0 kg
[~2019-10-24 12:27] MED LIST changes: +FERR-36 PO; -VALA500T PO; +VALA500T9 PO
[2019-10-24 12:59] VITALS: BP 132/104
--- NOTE | 2019-10-24 13:07 | PHYS DOC ---
Past Medical History Past Medical History: CAD, Diabetes-Type II, High Cholesterol, Hypertension, TB Additional Past Medical Histor: prostate ca in remission. las radiation tx in june. Past Surgical History: Pacemaker, Tonsillectomy Additional Past Surgical Histo: back x 2,neck "broke" Smoking Status: Former Smoker Alcohol Use: Occasionally Drug Use: None General Adult EDM: Chief Complaint: KNEE SWELLING HPI: HPI: Patient is a 79 year old male who presented to ER today for evaluation of right knee pain even waking up this morning. Patient stated that he had chronic knee problem, denies any injury. Patient said whenever he walks a certain way he has severe pain in the middle part of his right knee. Patient denies any fever or cough or any trouble breathing, denies any chest pain. Review of Systems: Review of Systems: Constitutional: Denies fever or chills. [] Eyes: Denies change in visual acuity. [] HENT: Denies nasal congestion or sore throat. [] Respiratory: Denies cough or shortness of breath. [] Cardiovascular: Denies chest pain or edema. [] GI: Denies abdominal pain, nausea, vomiting, bloody stools or diarrhea. [] : Denies dysuria. [] Musculoskeletal: Denies back pain , positive for right knee pain Integument: Denies rash. [] Neurologic: Denies headache, focal weakness or sensory changes. [] Endocrine: Denies polyuria or polydipsia. [] Lymphatic: Denies swollen glands. [] Psychiatric: Denies depression or anxiety. [] Heart Score: Risk Factors: Risk Factors: DM, Current or recent (<one month) smoker, HTN, HLP, family history of CAD, obesity. Risk Scores: Score 0 - 3: 2.5% MACE over next 6 weeks - Discharge Home Score 4 - 6: 20.3% MACE over next 6 weeks - Admit for Clinical Observation Score 7 - 10: 72.7% MACE over next 6 weeks - Early Invasive Strategies Allergies: Allergies: Allergies Coded Allergies Type Severity Reaction Last Updated Verified No Known Drug Allergies 02/16/18 No Physical Exam: PE: Constitutional: Well developed, well nourished, no acute distress, non-toxic appearance. [] HENT: Normocephalic, atraumatic, bilateral external ears normal, oropharynx moist, no oral exudates, nose normal. [] Eyes: PERRLA, EOMI, conjunctiva normal, no discharge. [] Neck: Normal range of motion, no tenderness, supple, no stridor. [] Cardiovascular:Heart rate regular rhythm, no murmur [] Lungs & Thorax: Bilateral breath sounds clear to auscultation [] Abdomen: Bowel sounds normal, soft, no tenderness, no masses, no pulsatile masses. [] Skin: Warm, dry, no erythema, no rash. [] Back: No tenderness, no CVA tenderness. [] Extremities: Right knee is tender to palpation at the medial collateral ligament area, the knee joint is stable, there is no redness, there is no obvious swelling noted. There is no calf swelling or tenderness. Neurologic: Alert and oriented X 3, normal motor function, normal sensory functi on, no focal deficits noted. [] Psychologic: Affect normal, judgement normal, mood normal. [] EKG: EKG: [] Radiology/Procedures: Radiology/Procedures: [][facility] [address] [facility] [place], [place] [id number] IMAGING REPORT Signed PATIENT: KASANDRA VILLASEÑOR ACCOUNT: [id number] : 1940 LOCATION: ER AGE: 79 SEX: M EXAM STATUS: REG ER ORD. PHYSICIAN: FILIBERTO GARCIA DO REASON: right knee pain, swelling PROCEDURE: KNEE RIGHT 3V Examination: KNEE RIGHT 3V History: Reason: right knee pain, swelling / Spl. Instructions: / History: Comparison/Correlation: None Findings: 3 images of the right knee were obtained. Severe medial compartment narrowing is present. Subchondral sclerosis is present along with spurring. Mild patellofemoral compartment narrowing with spurring about the patella is present. Small knee joint effusion is present. Subtle varus deformity of the right knee is present. Chondral calcifications present. Minimal meniscal calcification noted. This is primarily at the lateral compartment. No acute fracture or bone destruction. Arterial vascular calcification incidentally seen. . Impression: Severe medial compartment degenerative findings. Subtle varus deformity. Small joint effusion. Electronically signed by: Isaac Chaudhry MD (10/24/2019 1:33 PM) [id number] DICTATED and SIGNED BY: ISAAC CHAUDHRY MD DATE: 10/24/19 1333 Course & Med Decision Making: Course & Med Decision Making Pertinent Labs and Imaging studies reviewed. (See chart for details) Patient is a 79-year-old male who was evaluated in the ER today due to right knee pain, x-ray shows severe degenerative joint disease, patient will need to follow-up with an orthopedic surgeon for evaluation for possible knee replacement. Patient will be discharged home with some pain medication. Patient is amenable to plan of care. Dragon Disclaimer: Dragon Disclaimer: This electronic medical record was generated, in whole or in part, using a voice recognition dictation system. Departure Departure Impression: Primary Impression: Degenerative joint disease of right knee Disposition: HOME, SELF-CARE Condition: STABLE Referrals: Carlos COLBERT MD (PCP) PLEASE FOLLOW UP WITH AN ORTHOPEDIC SURGEON FOR FURTHER EVALUATION OF YOUR KNEE PROBLEM. Patient Instructions: Arthritis, Degenerative-Brief, Knee Pain Scripts Hydrocodone/Apap 5-325 (NORCO 5-325 TABLET) 1 Each Tablet 1 TAB PO PRN Q6HRS PRN for PAIN, #12 TAB 0 Refills Prov: FILIBERTO GARCIA DO 10/24/19 FILIBERTO GARCIA DO October 24, 2019 13:07
--- NOTE | 2019-10-24 13:36 | RAD ---
Examination: KNEE RIGHT 3V History: Reason: right knee pain, swelling / Spl. Instructions: / History: Comparison/Correlation: None Findings: 3 images of the right knee were obtained. Severe medial compartment narrowing is present. Subchondral sclerosis is present along with spurring. Mild patellofemoral compartment narrowing with spurring about the patella is present. Small knee joint effusion is present. Subtle varus deformity of the right knee is present. Chondral calcifications present. Minimal meniscal calcification noted. This is primarily at the lateral compartment. No acute fracture or bone destruction. Arterial vascular calcification incidentally seen. . Impression: Severe medial compartment degenerative findings. Subtle varus deformity. Small joint effusion. Electronically signed by: Isaac Thomas MD (10/24/2019 1:33 PM) [id number]
[2019-10-24] MEDS ORDERED: IBUPROFEN 200 MG TABLET. PO ONE (13:45)
[2019-10-24] MEDS ORDERED: HYDROcodone/APAP 5/325MG 1 TAB TABLET PO ONE (13:45)
[2019-10-24] MEDS ORDERED: HYDR-3164 PO (14:34)
== END 2019-10-24 14:59 | disposition home or self-care (01) ==
LOC: ER 12:27
DX: M17.11 Unilateral primary osteoarthritis, right knee (principal); E11.9 Type 2 diabetes mellitus without complications; E78.00 Pure hypercholesterolemia, unspecified; I10 Essential (primary) hypertension; I25.10 Atherosclerotic heart disease of native coronary artery without angina pectoris; Z87.891 Personal history of nicotine dependence; Z95.0 Presence of cardiac pacemaker
CPT/HCPCS: 73562; 99283

== ENCOUNTER → 2019-12-24 | Outpatient (CLI) | payer MEDICARE, OTHER ==
[~2019-12-24] MED LIST changes: +HYDR-3164 PO
[2019-12-24 13:19] LABS: BASO % 1 % (0-3); EOS # 0.4 x10^3/uL (0.0-0.7); EOS % 9 % (0-3); HEMATOCRIT 30.4 % (39.0-53.0); HEMOGLOBIN 10.3 g/dL (13.0-17.5); LYMPH % 23 % (24-48); MEAN CORPUSCULAR HEMOGLOBIN 25 pg (25-35); MEAN CORPUSCULAR HGB CONC 34 g/dL (31-37); MEAN CORPUSCULAR VOLUME 75 fL (79-100); MONO # 0.4 x10^3/uL (0.0-1.1); MONO % 9 % (0-9); NEUT # 2.7 x10^3/uL (1.8-7.7); NEUT % 58 % (31-73); PLATELET COUNT 231 x10^3/uL (140-400); RED BLOOD COUNT 4.05 x10^6/uL (4.30-5.70); WHITE BLOOD COUNT 4.6 x10^3/uL (4.0-11.0)
[2019-12-24 13:35] LABS: CREATININE 1.6 mg/dL (0.7-1.3); GFR 41.9; POTASSIUM 4.1 mmol/L (3.5-5.1)
[2019-12-24 13:53] LABS: ALBUMIN 3.8 g/dL (3.4-5.0); ALBUMIN/GLOBULIN RATIO 1.2 (1.0-1.7); TOTAL BILIRUBIN 0.4 mg/dL (0.2-1.0); TOTAL PROTEIN 7.1 g/dL (6.4-8.2)
== END | disposition home or self-care (01) ==
LOC: ONCLAB 13:02
PROVIDERS: ATTEND Internal Medicine Hematology & Oncology
DX: C61 Malignant neoplasm of prostate (principal)
CPT/HCPCS: 36415; 80053; 82607; 82728; 82746; 83540; 83550; 84153; 85025; G0103

== ENCOUNTER → 2020-02-14 | Outpatient (CLI) | payer MEDICARE, OTHER ==
--- NOTE | 2020-02-14 11:31 | RAD ---
DOPPLER CAROTID BILAT History: Reason: rt retinal artery occlusion / Spl. Instructions: / History: Multiple grayscale, color, and duplex spectral analysis waveform sonographic images were acquired of the carotid, subclavian, and vertebral arteries. Comparison: None Findings: RIGHT SIDE: Peak systolic flow velocity of the distal CCA is 62 cm/sec. Peak systolic flow velocity of the ICA is 73 cm/sec. The ICA/CCA ratio is 1.2. Peak end diastolic flow velocity of the ICA is 28 cm/sec. The peak systolic velocity of the ECA is 66 cm/sec. Mild plaque formation is identified. LEFT SIDE: Peak systolic flow velocity of the distal CCA is 65 cm/sec. Peak systolic flow velocity of the ICA is 69 cm/sec. The ICA/CCA ratio is 1.0. Peak end diastolic flow velocity of the ICA is 27 cm/sec. Peak systolic flow velocity of the ECA is 67 cm/sec. Mild plaque formation is identified. Vertebral arteries: Bilateral vertebral arteries demonstrate antegrade flow. Impression: Mild atherosclerosis of the ICAs with velocities consistent with less than 50 percent stenosis. PQRS Compliance Statement - Stenosis calculations for carotid ultrasound studies are derived from validated velocity criteria which are known to correlate with the NASCET methodology. Electronically signed by: Dwayne Tyler MD (02/14/2020 11:28 AM) [id number]
== END | disposition home or self-care (01) ==
LOC: US 10:22
PROVIDERS: ATTEND Family Medicine
DX: I65.23 Occlusion and stenosis of bilateral carotid arteries (principal); H34.11 Central retinal artery occlusion, right eye
CPT/HCPCS: 93880

== ENCOUNTER 2020-03-16 16:38 | Emergency (ER) | payer MEDICARE, OTHER ==
[~2020-03-16] VITALS: Ht 162.6 cm; Wt 72.7 kg
[2020-03-16 17:27] VITALS: BP 136/69
--- NOTE | 2020-03-16 17:44 | PHYS DOC ---
Past Medical History Past Medical History: CAD, Diabetes-Type II, High Cholesterol, Hypertension, TB Additional Past Medical Histor: prostate ca in remission. las radiation tx in june. Past Surgical History: Pacemaker, Tonsillectomy Additional Past Surgical Histo: back x 2,neck "broke" Smoking Status: Never Smoker Alcohol Use: Occasionally Drug Use: None General Adult EDM: Chief Complaint: TOE PROBLEM HPI: HPI: Patient is a 79 year old male, accompanied by his daughter, who presents emergency room with complaints of right great toe redness and drainage. Patient reports he has had some bloody pus drained from the medial edge of his right great toe today. He noticed that it was red and painful 3 days ago he denies any known injury. Patient denies any fever, numbness, tingling, or weakness of the affected extremity. He states that the site does not hurt unless it is touched. He currently denies pain. Review of Systems: Review of Systems: Complete ROS is negative unless otherwise noted in HPI. Heart Score: Risk Factors: Risk Factors: DM, Current or recent (<one month) smoker, HTN, HLP, family history of CAD, obesity. Risk Scores: Score 0 - 3: 2.5% MACE over next 6 weeks - Discharge Home Score 4 - 6: 20.3% MACE over next 6 weeks - Admit for Clinical Observation Score 7 - 10: 72.7% MACE over next 6 weeks - Early Invasive Strategies Allergies: Allergies: Allergies Coded Allergies Type Severity Reaction Last Updated Verified No Known Drug Allergies 02/16/18 No Physical Exam: PE: Constitutional: Well developed, well nourished, no acute distress, non-toxic appearance. [] HENT: Normocephalic, atraumatic, bilateral external ears normal, nose normal. [] Eyes: PERRLA, EOMI, conjunctiva normal, no discharge. [] Neck: Normal range of motion, no stridor. [] Cardiovascular:Heart rate regular rhythm Lungs & Thorax: Respirations even and unlabored, no retractions, no respiratory distress Skin: Warm, dry; erythema to medial edge of right great toe consistent with paronychia, no warmth, no fluctuance, mild surrounding erythema consistent with mild cellulitis. Extremities: Right foot: No tenderness to palpation, no obvious deformity, no cyanosis, ROM intact, no edema. [] Neurologic: Alert and oriented X 3, no focal deficits noted. [] Psychologic: Affect normal, judgement normal, mood normal. [] Current Patient Data: Vital Signs: Vital Signs Date Time Temp Pulse Resp B/P (MAP) Pulse Ox O2 Delivery O2 Flow Rate FiO2 03/16/20 17:27 97.8 71 20 136/69 (91) 96 Room Air 97.8 EKG: EKG: [] Radiology/Procedures: Radiology/Procedures: [] Course & Med Decision Making: Course & Med Decision Making Pertinent Labs and Imaging studies reviewed. (See chart for details) [] Dragon Disclaimer: Dragon Disclaimer: This electronic medical record was generated, in whole or in part, using a voice recognition dictation system. Departure Departure Impression: Primary Impression: Paronychia of great toe of right foot Additional Impression: Cellulitis of great toe of right foot Disposition: 01 DC HOME SELF CARE/HOMELESS Condition: STABLE Referrals: Carlos COLBERT MD (PCP) Patient Instructions: Paronychia, [id number] Additional Instructions: Fill prescription(s) and use as directed. Soak the affected area in epsom salt soaks 3-4x/day and as needed for comfort. You may take tylenol as needed for pain. Follow-up with Dr. Colbert for a wound recheck in 48 hours. Return to the ER if your symptoms worsen or fever develops.. Scripts Cephalexin (CEPHALEXIN) 500 Mg Capsule 1 CAP PO QID for 7 Days, #28 CAP 0 Refills Prov: GISSELLE BOWEN APRN 03/16/20 GISSELLE BOWEN APRN Mar 16, 2020 17:44
[2020-03-16] MEDS ORDERED: CEPH500C PO (17:48)
== END 2020-03-16 18:07 | disposition home or self-care (01) ==
LOC: ER 16:38
DX: L03.031 Cellulitis of right toe (principal); L53.9 Erythematous condition, unspecified; I11.9 Hypertensive heart disease without heart failure; E11.9 Type 2 diabetes mellitus without complications; E78.00 Pure hypercholesterolemia, unspecified; Z85.9 Personal history of malignant neoplasm, unspecified; Z95.0 Presence of cardiac pacemaker; Z98.890 Other specified postprocedural states
CPT/HCPCS: 99283

== ENCOUNTER 2020-04-17 21:33 | Emergency (ER) | payer MEDICARE ==
[~2020-04-17] VITALS: Ht 162.6 cm; Wt 72.7 kg
[~2020-04-17 21:33] MED LIST changes: +CEPH500C PO
[2020-04-17 21:40] VITALS: BP 139/87
--- NOTE | 2020-04-17 22:14 | PHYS DOC ---
Past Medical History Past Medical History: CAD, Diabetes-Type II, High Cholesterol, Hypertension, TB Additional Past Medical Histor: prostate ca in remission. las radiation tx in june. Past Surgical History: Pacemaker, Tonsillectomy Additional Past Surgical Histo: back x 2,neck "broke" Smoking Status: Never Smoker Alcohol Use: Occasionally Drug Use: None General Adult EDM: Chief Complaint: COUGH HPI: HPI: Patient is a 79 year old male past medical history of coronary artery disease hypertension hyperlipidemia diabetes presents with a chief complaint of cough with some shortness of breath. Patient states cough is been ongoing for approxi mately 1 and half weeks. Patient has a cough with some sputum production. He denies any fevers chills or chest pain. Patient states he does have some mild shortness of breath. Patient states he has taken for Covid tests that have all been negative. Patient is current symptoms are new since last negative test. Review of Systems: Review of Systems: Constitutional: Denies fever or chills. [] Eyes: Denies change in visual acuity. [] HENT: Denies nasal congestion or sore throat. [] Respiratory: Positive cough or shortness of breath. [] Cardiovascular: Denies chest pain or edema. [] GI: Denies abdominal pain, nausea, vomiting, bloody stools or diarrhea. [] : Denies dysuria. [] Musculoskeletal: Denies back pain or joint pain. [] Integument: Denies rash. [] Neurologic: Denies headache, focal weakness or sensory changes. [] Endocrine: Denies polyuria or polydipsia. [] Lymphatic: Denies swollen glands. [] Psychiatric: Denies depression or anxiety. [] Heart Score: Risk Factors: Risk Factors: DM, Current or recent (<one month) smoker, HTN, HLP, family history of CAD, obesity. Risk Scores: Score 0 - 3: 2.5% MACE over next 6 weeks - Discharge Home Score 4 - 6: 20.3% MACE over next 6 weeks - Admit for Clinical Observation Score 7 - 10: 72.7% MACE over next 6 weeks - Early Invasive Strategies Allergies: Allergies: Allergies Coded Allergies Type Severity Reaction Last Updated Verified No Known Drug Allergies 02/16/18 No Physical Exam: PE: Constitutional: Well developed, well nourished, no acute distress, non-toxic appearance. [] HENT: Normocephalic, atraumatic, bilateral external ears normal, oropharynx moist, no oral exudates, nose normal. [] Eyes: PERRLA, EOMI, conjunctiva normal, no discharge. [] Neck: Normal range of motion, no tenderness, supple, no stridor. [] Cardiovascular:Heart rate regular rhythm, no murmur [] Lungs & Thorax: Bilateral breath sounds clear to auscultation [] Abdomen: Bowel sounds normal, soft, no tenderness, no masses, no pulsatile masses. [] Skin: Warm, dry, no erythema, no rash. [] Back: No tenderness, no CVA tenderness. [] Extremities: No tenderness, no cyanosis, no clubbing, ROM intact, no edema. [] Neurologic: Alert and oriented X 3, normal motor function, normal sensory function, no focal deficits noted. [] Psychologic: Affect normal, judgement normal, mood normal. [] Current Patient Data: Vital Signs: Vital Signs Date Time Temp Pulse Resp B/P (MAP) Pulse Ox O2 Delivery O2 Flow Rate FiO2 04/17/20 21:40 97.7 83 18 139/87 (104) 97 Room Air 97.7 EKG: EKG: [] Radiology/Procedures: Radiology/Procedures: [] Impression: FINDINGS: Pacer with leads terminating the right atrium and ventricle. Heart is mildly enlarged. Pulmonary vessels are within normal limits. Strandy opacities at the left lung base. No pleural effusion. IMPRESSION: Strandy opacities at the left lung base likely representing atelectasis. Course & Med Decision Making: Course & Med Decision Making Pertinent Labs and Imaging studies reviewed. (See chart for details) [] Dragon Disclaimer: Dragon Disclaimer: This electronic medical record was generated, in whole or in part, using a voice recognition dictation system. Departure Departure Impression: Primary Impression: Cough Disposition: 01 DC HOME SELF CARE/HOMELESS Condition: STABLE Referrals: Carlos COLBERT MD (PCP) Patient Instructions: Cough, Adult Additional Instructions: You have been tested for or diagnosed with COVID-19. It is an infection caused by a new type of coronavirus. COVID-19 will cause cold-like or mild flu symptoms in most. It can cause more severe symptoms like problems breathing in some. There is no treatment for COVID-19. The body will clear the infection over time. Self-care will help to ease discomfort. Steps to Take: Self-Care Rest as needed. Healthy habits may help you feel better. Steps include: Choose healthy foods including fruits and vegetables. Drink water throughout the day. Get plenty of sleep each night. If you smoke, try to quit. It may ease breathing. Avoid alcohol. Keep Others Healthy The virus can spread to others. Droplets are released every time you sneeze or c ough. The droplets can get into the mouth, nose, or eyes of people near you and lead to infection. To lower the chances of spreading COVID-19 to others: Stay at home until your doctor has said it is safe to leave. If you tested positive this will mean staying isolated until both of the following are true: At least 7 days have passed since the start of illness. You are free of fever for at least 72 hours without the use of medicine. During this time: - Avoid public areas, events, or transportation. Do not return to work or school until your doctor has said it is safe to do so. - Call ahead if you need to go to a medical center. Let them know you may have COVID-19. It will help them guide you where to go. They may also ask you to wear a facemask when you come to the office. - If you call for emergency medical services, let them know you may have COVID- 19. While at home: - Try to avoid close contact with others. Stay about 6 feet away. - If possible, spend most of your time in a separate room from others. - Use a face mask if you will be in close contact with others such as sharing a room or vehicle. - Have someone wipe down common surfaces in the home. Use household freezer operator every day on areas like doorknobs, counters, or sinks. - Cough or sneeze into a tissue. Throw the tissue away right after use. If a tissue is not available, cough or sneeze into your elbow. - Wash your hands often. Wash them after sneezing or coughing. Use soap and water and wash for at least 20 seconds. Alcohol based hand film cleaner can be used if soap and water is not available. - Do not prepare food for others. Avoid sharing personal items like forks, spoons, or toothbrushes. - Avoid close contact with pets while you are sick. There is no evidence of the virus passing to pets. This is a safety step until more is known about this virus. Isolation can be frustrating. Social interaction can help. Keep in touch with friends and family through phone and tech options. You can still interact with others in your home, just keep a safe distance of about 6 feet. Follow-up: Your doctors office will check in with you to see if there are any changes in your health. You may be asked to keep track of symptoms to share with them. They will also let you know when you are clear to be in public again. Problems to Look Out For: Contact your doctor if your recovery is not going as you expect. Get emergency care if you have problems such as: - Trouble breathing - Nonstop chest pain or pressure - Changes in awareness, confusion, or problems waking - Lips or face have bluish color - Worsening of symptoms If you think you have an emergency, call for emergency medical services right away. As taken from [facility] Guaifenesin/Codeine Phosphate (Codeine-Guaifen 10-100 mg/5 ml) 120 Ml Liquid 10-May ML PO PRN Q4HRS PRN for cough and congestion MDD 60 Milliliter(s) for 4 Days, #120 ML 0 Refills Prov: IVÁN GIBBONS I DO 04/17/20 Azithromycin (ZITHROMAX) 250 Mg Tablet 1 PKG PO UD, #6 TAB Prov: EDWIGEIVÁN I DO 04/17/20 EDWIGEIVÁN I DO Apr 17, 2020 22:14
--- NOTE | 2020-04-17 22:50 | RAD ---
Exam: Chest one view INDICATION: Cough TECHNIQUE: Frontal view of the chest Comparisons: None FINDINGS: Pacer with leads terminating the right atrium and ventricle. Heart is mildly enlarged. Pulmonary vessels are within normal limits. Strandy opacities at the left lung base. No pleural effusion. IMPRESSION: Strandy opacities at the left lung base likely representing atelectasis. Electronically signed by: Caty Valenzuela MD (04/17/2020 10:47 PM) [facility]
[2020-04-17] MEDS ORDERED: DEXAMETHASONE 4 MG TABLET PO SCH (23:00)
[2020-04-17] MEDS ORDERED: GUAI120L35 PO (23:01)
[2020-04-17] MEDS ORDERED: AZIT250T PO (23:01)
--- NOTE | 2020-04-20 13:01 | NUR ---
IP: Informed pt of negative COVID results. Pt verbalized understanding.
== END 2020-04-17 23:18 | disposition home or self-care (01) ==
LOC: ER 21:33
DX: R05 Cough (principal); Z20.828 Contact with and (suspected) exposure to other viral communicable diseases; R06.02 Shortness of breath; E11.9 Type 2 diabetes mellitus without complications; I10 Essential (primary) hypertension; E78.00 Pure hypercholesterolemia, unspecified; I25.10 Atherosclerotic heart disease of native coronary artery without angina pectoris; Z95.0 Presence of cardiac pacemaker
CPT/HCPCS: 71045; 99284; C9803; U0003

== ENCOUNTER → 2020-06-17 | Outpatient (CLI) | payer MEDICARE ==
[~2020-06-17] MED LIST changes: +AZIT250T PO; +GUAI120L35 PO; +LISI10TA16 PO; -LISI10TA2 PO; +PANT20TA2 PO; +PANT40TA77 PO
[2020-06-17 14:14] LABS: BASO % 1 % (0-3); EOS # 0.2 x10^3/uL (0.0-0.7); EOS % 4 % (0-3); HEMATOCRIT 36.4 % (39.0-53.0); HEMOGLOBIN 12.5 g/dL (13.0-17.5); LYMPH # 0.8 x10^3/uL (1.0-4.8); LYMPH % 19 % (24-48); MEAN CORPUSCULAR HEMOGLOBIN 30 pg (25-35); MEAN CORPUSCULAR HGB CONC 34 g/dL (31-37); MEAN CORPUSCULAR VOLUME 87 fL (79-100); MONO # 0.4 x10^3/uL (0.0-1.1); MONO % 9 % (0-9); NEUT % 67 % (31-73); PLATELET COUNT 201 x10^3/uL (140-400); RED CELL DISTRIBUTION WIDTH 14.5 % (11.5-14.5); WHITE BLOOD COUNT 4.4 x10^3/uL (4.0-11.0)
[2020-06-18 16:15] LABS: PSA FREE <0.02 ng/mL; PSA TOTAL <0.1 ng/mL (0.0-4.0)
== END ==
LOC: ONCLAB 13:38
PROVIDERS: ATTEND Internal Medicine Hematology & Oncology
DX: C61 Malignant neoplasm of prostate (principal); D50.0 Iron deficiency anemia secondary to blood loss (chronic)
CPT/HCPCS: 36415; 82728; 83540; 83550; 84153; 84154; 85025

== ENCOUNTER 2020-09-15 18:56 | Observation (INO) | payer MEDICARE ==
[~2020-09-15] VITALS: Ht 165.1 cm; Wt 75.8 kg
[~2020-09-15 18:56] MED LIST changes: -PANT20TA2 PO; -PANT40TA77 PO
[2020-09-15] MEDS ORDERED: PANTOPRAZOLE IV PUSH 40 MG VIAL. IVP ONE (20:00)
[2020-09-15] MEDS ORDERED: ONDANSETRON PF 4 MG/2 ML VIAL. IVP ONE (20:00)
--- NOTE | 2020-09-15 20:04 | PHYS DOC ---
Past Medical History Past Medical History: CAD, Diabetes-Type II, High Cholesterol, Hypertension, TB Additional Past Medical Histor: prostate ca in remission. las radiation tx in june. Past Surgical History: Pacemaker, Tonsillectomy Additional Past Surgical Histo: back x 2,neck "broke" Smoking Status: Never Smoker Alcohol Use: Rarely Drug Use: None Adult General Chief Complaint Chief Complaint: RECTAL BLEED HPI HPI Patient is a 80 year old male with a possible history of hypertension, hyperlipidemia, diabetes, coronary artery disease now presents emergency department complaint of new onset of rectal bleeding. Patient states over the last 4 days he has been having issues with every time he has a bowel movement he notes that he passes mild amount of blood. Patient states initially was bright red but now he notes that he has been passing dark red clots. Patient states he had an issue approximately 2 years ago where came in for the same problem and ultimately underwent upper and lower endoscopy which found a ulcer in the duodenum. Currently denies any abdominal pain. Denies any nausea, vomiting, dizziness, lightheadedness. Review of Systems Review of Systems Constitutional: Denies fever or chills [] Eyes: Denies change in visual acuity, redness, or eye pain [] HENT: Denies nasal congestion or sore throat [] Respiratory: Denies cough or shortness of breath [] Cardiovascular: No additional information not addressed in HPI [] GI: Denies abdominal pain, nausea, vomiting, bloody stools or diarrhea [] : Denies dysuria or hematuria [] Musculoskeletal: Denies back pain or joint pain [] Integument: Denies rash or skin lesions [] Neurologic: Denies headache, focal weakness or sensory changes [] Endocrine: Denies polyuria or polydipsia [] All other systems were reviewed and found to be within normal limits, except as documented in this note. Current Medications Current Medications Current Medications Medications (Trade) Dose Ordered Sig/Dominique Start Time Stop Time Status Last Admin Dose Admin Iohexol (Omnipaque 300 Mg/ml) 75 ml 1X ONCE 09/15/20 20:30 09/15/20 20:31 DC 09/15/20 20:24 75 ML Ondansetron HCl (Zofran) 4 mg 1X ONCE 09/15/20 20:00 09/15/20 20:01 DC 09/15/20 20:32 4 MG Pantoprazole Sodium (PROTONIX VIAL for IV PUSH) 40 mg 1X ONCE 09/15/20 20:00 09/15/20 20:01 DC 09/15/20 20:32 40 MG Allergies Allergies Allergies Coded Allergies Type Severity Reaction Last Updated Verified No Known Drug Allergies 02/16/18 No Physical Exam Physical Exam Constitutional: Well developed, well nourished, no acute distress, non-toxic appearance. [] HENT: Normocephalic, atraumatic, bilateral external ears normal, oropharynx m oist, no oral exudates, nose normal. [] Eyes: PERRLA, EOMI, conjunctiva normal, no discharge. [] Neck: Normal range of motion, no tenderness, supple, no stridor. [] Cardiovascular:Heart rate regular rhythm, no murmur [] Lungs & Thorax: Bilateral breath sounds clear to auscultation [] Abdomen: Bowel sounds normal, soft, no tenderness, no masses, no pulsatile masses. Fabio perirectal blood Skin: Warm, dry, no erythema, no rash. [] Back: No tenderness, no CVA tenderness. [] Extremities: No tenderness, no cyanosis, no clubbing, ROM intact, no edema. [] Neurologic: Alert and oriented X 3, normal motor function, normal sensory function, no focal deficits noted. [] Psychologic: Affect normal, judgement normal, mood normal. [] Current Patient Data Vital Signs Vital Signs Date Time Temp Pulse Resp B/P (MAP) Pulse Ox O2 Delivery O2 Flow Rate FiO2 09/15/20 22:27 60 124/67 (86) 96 Room Air 09/15/20 20:01 17 09/15/20 19:00 98.0 98.0 Lab Values Laboratory Tests Test 09/15/20 19:25 09/15/20 22:00 White Blood Count 4.7 x10^3/uL (4.0-11.0) Red Blood Count 4.12 x10^6/uL (4.30-5.70) L Hemoglobin 12.5 g/dL (13.0-17.5) L Hematocrit 36.0 % (39.0-53.0) L Mean Corpuscular Volume 87 fL (79-100) Mean Corpuscular Hemoglobin 30 pg (25-35) Mean Corpuscular Hemoglobin Concent 35 g/dL (31-37) Red Cell Distribution Width 13.5 % (11.5-14.5) Platelet Count 175 x10^3/uL (140-400) Neutrophils (%) (Auto) 53 % (31-73) Lymphocytes (%) (Auto) 24 % (24-48) Monocytes (%) (Auto) 11 % (0-9) H Eosinophils (%) (Auto) 12 % (0-3) H Basophils (%) (Auto) 1 % (0-3) Neutrophils # (Auto) 2.5 x10^3/uL (1.8-7.7) Lymphocytes # (Auto) 1.1 x10^3/uL (1.0-4.8) Monocytes # (Auto) 0.5 x10^3/uL (0.0-1.1) Eosinophils # (Auto) 0.5 x10^3/uL (0.0-0.7) Basophils # (Auto) 0.1 x10^3/uL (0.0-0.2) Prothrombin Time 13.3 SEC (11.7-14.0) Prothrombin Time INR 1.1 (0.8-1.1) Activated Partial Thromboplast Time 27 SEC (24-38) Sodium Level 143 mmol/L (136-145) Potassium Level 4.1 mmol/L (3.5-5.1) Chloride Level 106 mmol/L (98-107) Carbon Dioxide Level 22 mmol/L (21-32) Anion Gap 15 (6-14) H Blood Urea Nitrogen 27 mg/dL (8-26) H Creatinine 1.0 mg/dL (0.7-1.3) Estimated GFR (Cockcroft-Gault) 71.9 BUN/Creatinine Ratio 27 (6-20) H Glucose Level 243 mg/dL (70-99) H Calcium Level 8.9 mg/dL (8.5-10.1) Total Bilirubin 0.4 mg/dL (0.2-1.0) Aspartate Amino Transferase (AST) 16 U/L (15-37) Alanine Aminotransferase (ALT) 31 U/L (16-63) Alkaline Phosphatase 68 U/L (46-116) Creatine Kinase 135 U/L (39-308) Total Protein 6.6 g/dL (6.4-8.2) Albumin 3.6 g/dL (3.4-5.0) Albumin/Globulin Ratio 1.2 (1.0-1.7) Lipase 158 U/L (73-393) Urine Collection Type Unknown Urine Color Yellow Urine Clarity Clear Urine pH 5.5 (<5.0-8.0) Urine Specific [place] >=1.030 (1.000-1.030) Urine Protein Negative mg/dL (NEG-TRACE) Urine Glucose (UA) 100 mg/dL (NEG) Urine Ketones (Stick) Negative mg/dL (NEG) Urine Blood Negative (NEG) Urine Nitrite Negative (NEG) Urine Bilirubin Negative (NEG) Urine Urobilinogen Dipstick 0.2 mg/dL (0.2 mg/dL) Urine Leukocyte Esterase Negative (NEG) Urine RBC Rare /HPF (0-2) Urine WBC 0 /HPF (0-4) Urine Squamous Epithelial Cells Occ /LPF Urine Bacteria 0 /HPF (0-FEW) Laboratory Tests 09/15/20 19:25 Laboratory Tests 09/15/20 19:25 EKG EKG [] Radiology/Procedures Radiology/Procedures [] Course & Med Decision Making Course & Med Decision Making Pertinent Labs and Imaging studies reviewed. (See chart for details) Interval male presenting the emergency department evidence of lower GI bleed likely secondary to diverticulosis. Will obtain labs and x-rays no blood required anticipate need for admission for GI consultation Dragon Disclaimer Dragon Disclaimer This electronic medical record was generated, in whole or in part, using a voice recognition dictation system. Departure Departure Impression: Primary Impression: Lower GI bleed Disposition: ADMITTED INPATIENT Condition: STABLE Referrals: Carlos COLBERT MD (PCP) TIERRA AVILA MD Sep 15, 2020 20:04
[2020-09-15 20:05] LABS: BASO # 0.1 x10^3/uL (0.0-0.2); BASO % 1 % (0-3); EOS # 0.5 x10^3/uL (0.0-0.7); EOS % 12 % (0-3); HEMOGLOBIN 12.5 g/dL (13.0-17.5); LYMPH # 1.1 x10^3/uL (1.0-4.8); LYMPH % 24 % (24-48); MEAN CORPUSCULAR HEMOGLOBIN 30 pg (25-35); MEAN CORPUSCULAR HGB CONC 35 g/dL (31-37); MEAN CORPUSCULAR VOLUME 87 fL (79-100); MONO # 0.5 x10^3/uL (0.0-1.1); MONO % 11 % (0-9); NEUT # 2.5 x10^3/uL (1.8-7.7); NEUT % 53 % (31-73); PLATELET COUNT 175 x10^3/uL (140-400); RED BLOOD COUNT 4.12 x10^6/uL (4.30-5.70); RED CELL DISTRIBUTION WIDTH 13.5 % (11.5-14.5); WHITE BLOOD COUNT 4.7 x10^3/uL (4.0-11.0)
[2020-09-15 20:12] LABS: PROTHROMBIN TIME PATIENT 13.3 SEC (11.7-14.0)
[2020-09-15 20:13] LABS: CALCIUM 8.9 mg/dL (8.5-10.1); GFR 71.9; POTASSIUM 4.1 mmol/L (3.5-5.1)
[2020-09-15 20:19] LABS: ALBUMIN 3.6 g/dL (3.4-5.0); ALBUMIN/GLOBULIN RATIO 1.2 (1.0-1.7); TOTAL BILIRUBIN 0.4 mg/dL (0.2-1.0); TOTAL PROTEIN 6.6 g/dL (6.4-8.2)
[2020-09-15] MEDS ORDERED: IOHEXOL 300 MG/ML 100ML VIAL. IV ONE (20:30)
--- NOTE | 2020-09-15 20:40 | RAD ---
Exam: CT of abdomen and pelvis with contrast INDICATION: Abdominal pain TECHNIQUE: Sequential axial images through the abdomen and pelvis obtained following the administrati on of 75 mL of Isovue 370 IV contrast. Sagittal and coronal reformatted images were reconstructed fro m the axial data and reviewed. Comparisons: 05/07/2019 FINDINGS: Heart size is normal. No pericardial effusion. There is patchy tree-in-bud nodularity noted at the le ft lower lobe. No pleural effusion. Liver, spleen, pancreas, gallbladder and adrenals are unremarkable. No perinephric inflammation or hydronephrosis. No renal or ureteral calculi are identified. Bladder is decompressed not well evaluated. Prostate is not enlarged. Scattered diverticulosis noted in the sigmoid colon without evidence of acute diverticulitis. Appendi x is not identified. No free intra-abdominal air or fluid. No obstruction. Abdominal aorta has a normal course and caliber. Abdominal vasculature is patent. No enlarged intra-abdominal lymph nodes are identified. No suspicious osseous lesions or acute fractures. IMPRESSION: 1. No acute process identified within the abdomen or pelvis. 2. Subtle patchy tree-in-bud nodularity of the left lower lobe may be infectious or inflammatory in etiology. 3. Diverticulosis without evidence of acute diverticulitis. Exposure: One or more of the following in the visualized dose reduction techniques were utilized for this examination: 1. Automated exposure control 2. Adjustment of the MA and/or KV according to patient size 3. Use of iterative of reconstructive technique Electronically signed by: Caty Valenzuela MD (09/15/2020 8:38 PM) [facility]
[2020-09-15 22:11] LABS: BILIRUBIN,URINE NEGATIVE (NEG); CLARITY,URINE CLEAR; COLOR,URINE YELLOW; NITRITE,URINE NEGATIVE (NEG); PH,URINE 5.5 (<5.0-8.0); PROTEIN,URINE NEGATIVE (NEG-TRACE); UROBILINOGEN,URINE 0.2 mg/dL (0.2 mg/dL)
[2020-09-15 22:20] LABS: BACTERIA,URINE 0 /HPF (0-FEW); RBC,URINE RARE /HPF (0-2); WBC,URINE 0 /HPF (0-4)
[2020-09-15] MEDS ORDERED: ONDANSETRON PF 4 MG/2 ML VIAL. IV PRN (22:45)
[2020-09-15] MEDS ORDERED: MORPHINE SULFATE 4 MG/ML VIAL. IV PRN (22:45)
--- NOTE | 2020-09-15 23:52 | EKG ---
[facility] [address] [place] [id number] Test Date: 2020-09-15 Test Time: 20:10:19 Pat Name: KASANDRA VILLASEÑOR Department: Room: Gender: M Cardiac Nurse Specialist: : [id number] Requested By: TIERRA AVILA Order Number: [id number] Reading MD: Measurements Intervals [place] Rate: 62 P: 74 MI: 298 QRS: -12 QRSD: 72 T: 26 QT: 368 QTc: 376 Interpretive Statements SINUS RHYTHM PROLONGED MI INTERVAL LEFTWARD AXIS ABNORMAL ECG RI6.01 No previous ECG available for comparison
[2020-09-16 01:15] VITALS: BP 139/52
[2020-09-16] MEDS ORDERED: PANT20TA2 PO (01:41)
[2020-09-16] MEDS ORDERED: ASPI-630 PO (01:43)
[2020-09-16 01:53] VITALS: BP 139/52
[2020-09-16 03:00] VITALS: BP 119/62
[2020-09-16 07:00] VITALS: BP 121/69
--- NOTE | 2020-09-16 07:21 | PDOC1 ---
History and Physical Date of Service: DOS: DATE: 09/16/20 TIME: 07:19 Chief Complaint: Chief Complain: Rectal bleeding History of Present Illness: HPI: 80 year old male with a possible history of hypertension, hyperlipidemia, diabetes, coronary artery disease now presents emergency department complaint of new onset of rectal bleeding. Patient states over the last 4 days he has been having issues with every time he has a bowel movement he notes that he passes mild amount of blood. Patient states initially was bright red but now he notes that he has been passing dark red clots. Patient states he had an issue approximately 2 years ago where came in for the same problem and ultimately underwent upper and lower endoscopy which found a ulcer in the duodenum. Currently denies any abdominal pain. Denies any nausea, vomiting, dizziness, lightheadedness. Past Medical/Surgical History: PMH/PSH: Past Medical History: CAD, Diabetes-Type II, High Cholesterol, Hypertension, TB, prostate ca in remission. las radiation tx in june. Past Surgical History: Pacemaker, Tonsillectomy, back x 2,neck "broke" Allergies: Allergies: Coded Allergies: No Known Drug Allergies (Unverified , 02/16/18) Family History: Family History: Reviewed with no relevant findings Social History: Social History: Smoking Status: Never Smoker Alcohol Use: Rarely Drug Use: None Current Medications: Current Medications Current Medications Ondansetron HCl (Zofran) 4 mg 1X ONCE IVP Last administered on 09/15/20at 20:32; Start 09/15/20 at 20:00; Stop 09/15/20 at 20:01; Status DC Pantoprazole Sodium (PROTONIX VIAL for IV PUSH) 40 mg 1X ONCE IVP Last administered on 09/15/20at 20:32; Start 09/15/20 at 20:00; Stop 09/15/20 at 20:01; Status DC Iohexol (Omnipaque 300 Mg/ml) 75 ml 1X ONCE IV Last administered on 09/15/20at 20:24; Start 09/15/20 at 20:30; Stop 09/15/20 at 20:31; Status DC Ondansetron HCl (Zofran) 4 mg PRN Q8HRS PRN IV NAUSEA/VOMITING; Start 09/15/20 at 22:45; Stop 09/16/20 at 22:44 Morphine Sulfate (Morphine Sulfate) 4 mg PRN Q2HR PRN IV PAIN; Start 09/15/20 at 22:45; Stop 09/16/20 at 22:44 Active Scripts Active Reported Aspirin 81 Mg Tab.chew 1 Tab PO DAILY Protonix (Pantoprazole Sodium) 20 Mg Tablet.dr 1 Tab PO DAILY Iron (Ferrous Sulfate) 325 Mg Tablet 325 Mg PO DAILY Lisinopril 10 Mg Tablet 10 Mg PO DAILY Finasteride 5 Mg Tablet 5 Mg PO HS Metformin Hcl 1,000 Mg Tablet 1,000 Mg PO DAILYWSUP Atorvastatin Calcium 10 Mg Tablet 20 Mg PO HS ROS: Review of Systems Review of System REVIEW OF SYSTEMS: GENERAL: Denies weakness SKIN: No bruising, hair changes or rashes. EYES: No blurred, double or loss of vision. NOSE AND THROAT: No history of nosebleeds, hoarseness or sore throat. HEART: No history of palpitations, chest pain or shortness of breath on exertion. LUNGS: Denies cough, hemoptysis, wheezing or shortness of breath. GASTROINTESTINAL: Denies changes in appetite, nausea, vomiting, diarrhea or constipation. GENITOURINARY: No history of frequency, urgency, hesitancy or nocturia. NEUROLOGIC: Denies history of numbness, tingling, or tremor. PSYCHIATRIC: No history of panic, anxiety or depression. ENDOCRINE: No history of heat or cold intolerance, polyuria or polydipsia. EXTREMITIES: Denies joint pain, pain on walking or stiffness. Physical Exam: Vital Signs: Vital Signs Date Time Temp Pulse Resp B/P (MAP) Pulse Ox O2 Delivery O2 Flow Rate FiO2 09/16/20 03:00 97.6 62 18 119/62 (81) 96 Room Air 97.6 Physcial Exam: GEN: No apparent distress. Alert and oriented HEENT: Normal cephalic, atraumatic, external auditory canals are patent EYES: Extraocular muscles are intact, pupil are equally round and reactive to light and accommodation MUSCULOSKELETAL: Well developed , well nourished, good range of motion ENDOCRINE: No thyromegaly was palpated LYMPHATICS: No cervical chain or axillary nodes were noted HEMATOPOIETIC: No bruising NECK: Supple, no JVD, no thyromegaly was noted LUNGS: Clear to auscultation in all lung aguiar without rhonchi or wheezing HEART: RRR, S!, S2 present. Peripheral pulses intact, no obvious murmurs noted ABDOMEN: Soft, nontender. Positive bowel sounds, no organomegaly, normal bowel sounds EXTREMITIES: Without clubbing, cyanosis, or edema. Pedal pulses intact. Negative Homans sign NEUROLOGIC: Normal speech and tone. A&O x 3, moves all extremities, no obvious focal deficits PSYCHIATRIC: Normal affect, normal mood. Stable SKIN: No ulcerations or rashes, good skin turgor, no jaundice VASCULAR: Good capillary refill, neurovascular bundle appears to be intact Labs: Labs: Laboratory Tests Test 09/15/20 19:25 09/15/20 22:00 White Blood Count 4.7 x10^3/uL (4.0-11.0) Red Blood Count 4.12 x10^6/uL (4.30-5.70) Hemoglobin 12.5 g/dL (13.0-17.5) Hematocrit 36.0 % (39.0-53.0) Mean Corpuscular Volume 87 fL (79-100) Mean Corpuscular Hemoglobin 30 pg (25-35) Mean Corpuscular Hemoglobin Concent 35 g/dL (31-37) Red Cell Distribution Width 13.5 % (11.5-14.5) Platelet Count 175 x10^3/uL (140-400) Neutrophils (%) (Auto) 53 % (31-73) Lymphocytes (%) (Auto) 24 % (24-48) Monocytes (%) (Auto) 11 % (0-9) Eosinophils (%) (Auto) 12 % (0-3) Basophils (%) (Auto) 1 % (0-3) Neutrophils # (Auto) 2.5 x10^3/uL (1.8-7.7) Lymphocytes # (Auto) 1.1 x10^3/uL (1.0-4.8) Monocytes # (Auto) 0.5 x10^3/uL (0.0-1.1) Eosinophils # (Auto) 0.5 x10^3/uL (0.0-0.7) Basophils # (Auto) 0.1 x10^3/uL (0.0-0.2) Prothrombin Time 13.3 SEC (11.7-14.0) Prothromb Time International Ratio 1.1 (0.8-1.1) Activated Partial Thromboplast Time 27 SEC (24-38) Sodium Level 143 mmol/L (136-145) Potassium Level 4.1 mmol/L (3.5-5.1) Chloride Level 106 mmol/L (98-107) Carbon Dioxide Level 22 mmol/L (21-32) Anion Gap 15 (6-14) Blood Urea Nitrogen 27 mg/dL (8-26) Creatinine 1.0 mg/dL (0.7-1.3) Estimated GFR (Cockcroft-Gault) 71.9 BUN/Creatinine Ratio 27 (6-20) Glucose Level 243 mg/dL (70-99) Calcium Level 8.9 mg/dL (8.5-10.1) Total Bilirubin 0.4 mg/dL (0.2-1.0) Aspartate Amino Transf (AST/SGOT) 16 U/L (15-37) Alanine Aminotransferase (ALT/SGPT) 31 U/L (16-63) Alkaline Phosphatase 68 U/L (46-116) Creatine Kinase 135 U/L (39-308) Total Protein 6.6 g/dL (6.4-8.2) Albumin 3.6 g/dL (3.4-5.0) Albumin/Globulin Ratio 1.2 (1.0-1.7) Lipase 158 U/L (73-393) Urine Collection Type Unknown Urine Color Yellow Urine Clarity Clear Urine pH 5.5 (<5.0-8.0) Urine Specific [place] >=1.030 (1.000-1.030) Urine Protein Negative mg/dL (NEG-TRACE) Urine Glucose (UA) 100 mg/dL (NEG) Urine Ketones (Stick) Negative mg/dL (NEG) Urine Blood Negative (NEG) Urine Nitrite Negative (NEG) Urine Bilirubin Negative (NEG) Urine Urobilinogen Dipstick 0.2 mg/dL (0.2 mg/dL) Urine Leukocyte Esterase Negative (NEG) Urine RBC Rare /HPF (0-2) Urine WBC 0 /HPF (0-4) Urine Squamous Epithelial Cells Occ /LPF Urine Bacteria 0 /HPF (0-FEW) Laboratory Tests Test 09/15/20 19:25 09/15/20 22:00 White Blood Count 4.7 x10^3/uL (4.0-11.0) Red Blood Count 4.12 x10^6/uL (4.30-5.70) Hemoglobin 12.5 g/dL (13.0-17.5) Hematocrit 36.0 % (39.0-53.0) Mean Corpuscular Volume 87 fL (79-100) Mean Corpuscular Hemoglobin 30 pg (25-35) Mean Corpuscular Hemoglobin Concent 35 g/dL (31-37) Red Cell Distribution Width 13.5 % (11.5-14.5) Platelet Count 175 x10^3/uL (140-400) Neutrophils (%) (Auto) 53 % (31-73) Lymphocytes (%) (Auto) 24 % (24-48) Monocytes (%) (Auto) 11 % (0-9) Eosinophils (%) (Auto) 12 % (0-3) Basophils (%) (Auto) 1 % (0-3) Neutrophils # (Auto) 2.5 x10^3/uL (1.8-7.7) Lymphocytes # (Auto) 1.1 x10^3/uL (1.0-4.8) Monocytes # (Auto) 0.5 x10^3/uL (0.0-1.1) Eosinophils # (Auto) 0.5 x10^3/uL (0.0-0.7) Basophils # (Auto) 0.1 x10^3/uL (0.0-0.2) Prothrombin Time 13.3 SEC (11.7-14.0) Prothromb Time International Ratio 1.1 (0.8-1.1) Activated Partial Thromboplast Time 27 SEC (24-38) Sodium Level 143 mmol/L (136-145) Potassium Level 4.1 mmol/L (3.5-5.1) Chloride Level 106 mmol/L (98-107) Carbon Dioxide Level 22 mmol/L (21-32) Anion Gap 15 (6-14) Blood Urea Nitrogen 27 mg/dL (8-26) Creatinine 1.0 mg/dL (0.7-1.3) Estimated GFR (Cockcroft-Gault) 71.9 BUN/Creatinine Ratio 27 (6-20) Glucose Level 243 mg/dL (70-99) Calcium Level 8.9 mg/dL (8.5-10.1) Total Bilirubin 0.4 mg/dL (0.2-1.0) Aspartate Amino Transf (AST/SGOT) 16 U/L (15-37) Alanine Aminotransferase (ALT/SGPT) 31 U/L (16-63) Alkaline Phosphatase 68 U/L (46-116) Creatine Kinase 135 U/L (39-308) Total Protein 6.6 g/dL (6.4-8.2) Albumin 3.6 g/dL (3.4-5.0) Albumin/Globulin Ratio 1.2 (1.0-1.7) Lipase 158 U/L (73-393) Urine Collection Type Unknown Urine Color Yellow Urine Clarity Clear Urine pH 5.5 (<5.0-8.0) Urine Specific [place] >=1.030 (1.000-1.030) Urine Protein Negative mg/dL (NEG-TRACE) Urine Glucose (UA) 100 mg/dL (NEG) Urine Ketones (Stick) Negative mg/dL (NEG) Urine Blood Negative (NEG) Urine Nitrite Negative (NEG) Urine Bilirubin Negative (NEG) Urine Urobilinogen Dipstick 0.2 mg/dL (0.2 mg/dL) Urine Leukocyte Esterase Negative (NEG) Urine RBC Rare /HPF (0-2) Urine WBC 0 /HPF (0-4) Urine Squamous Epithelial Cells Occ /LPF Urine Bacteria 0 /HPF (0-FEW) Images: Images CT ABD/PELVIS IMPRESSION: 1. No acute process identified within the abdomen or pelvis. 2. Subtle patchy tree-in-bud nodularity of the left lower lobe may be infectious or inflammatory in etiology. 3. Diverticulosis without evidence of acute diverticulitis. Assessment/Plan Goals of Care: Advance Care Planning: Total time spent [id number] with patient greater than 16 minutes in discussion with goals of care, comfort care, end-of-life care, pain management, code status Justifications for Admission Other Justification QASIM WILDE MD Sep 16, 2020 07:21
[2020-09-16] MEDS ORDERED: DOCUSATE SODIUM 100 MG CAPSULE. PO PRN (07:30)
[2020-09-16] MEDS ORDERED: SENNOSIDES 8.6 MG TABLET PO PRN (07:30)
[2020-09-16] MEDS ORDERED: DEXTROSE 50% 25 GM / 50ML DISP.SYRIN. IV PRN (07:30)
[2020-09-16] MEDS ORDERED: ACETAMINOPHEN 325 MG TABLET. PO PRN (07:30)
[2020-09-16] MEDS ORDERED: ONDANSETRON PF 4 MG/2 ML VIAL. IVP PRN (07:30)
[2020-09-16] MEDS ORDERED: IV NORMAL SALINE 1000ML BAG 1,000 ML IV SCH (07:30)
--- NOTE | 2020-09-16 09:20 | NUR ---
SW following. Discussed with RN, pt from home with family, room air, regular diet. PT/OT ordered. GI consulted. RN advised no SW needs at this time. SW will continue to follow.
--- NOTE | 2020-09-16 09:28 | PDOC2 ---
GI CONSULT Date of Service: DATE: 09/16/20 TIME: 09:28 Reason For Consult: GI bleed HPI: HPI: 80 y/o male who has seen Dr. Mar in the past. H/o chronic rectal bleeding attributed to radiation proctitis. Also reports EGD and colonoscopy @ in 2019 that showed "an ulcer." Doesn't take any medication for this. Has had almost no bleeding issues for a year but then recurred 3-4 days ago. "Dark red" blood with and without stool, worse yesterday. No n/v, dizziness, or abd pain. No reflux, dysphagia, change in appetite, weight loss, diarrhea, constipation, or melena. Hgb 12.5 (same in 05/2020), BUN 27, Cr 1. He ate pancakes this morning and wants to go home. Colonoscopy 01/2018 (Dr. Mar) showed multiple medium sized diffuse angiectasia w/ stigmata of recent bleeding in rectum, sigmoid diverticulosis, and Grade 2 non-bleeding hemorrhoids. We last saw here at [facility] in 04/2019 - suggested outpt EGD and/or flex sig. No GB, liver, pancreas, or PUD history. On ASA 81mg QD. Has never had a negative hemoccult here. Per past encounter, suppositories were ineffective in the past for proctitis/bleeding. PMH: PMH: CAD, VA, HTN, HLD, DM, vertebral factures, prostate cancer s/p radiation, prostate biopsies, pacemaker, tonsillectomy, appendectomy, orchiectomy ("rupture") FH: Family History: No pertinent hx Social History: Smoke: Quit ALCOHOL: occassional Drugs: None ROS: GEN: Denies fevers, chills, sweats HEENT: Denies blurred vision, sore throat CV: Denies chest pain RESP: Denies shortness of air, cough GI: Per HPI : Denies hematuria, dysuria ENDO: Denies weight changes NEURO: Denies confusion, dizziness MSK: Denies weakness, joint pain/swelling SKIN: Denies jaundice, pruritus Vitals: Vitals: Vital Signs Date Time Temp Pulse Resp B/P (MAP) Pulse Ox O2 Delivery O2 Flow Rate FiO2 09/16/20 07:00 98.5 61 18 121/69 (86) 98 Room Air 98.5 Labs: Labs: Laboratory Tests Test 4/19/21 19:25 09/15/20 22:00 White Blood Count 4.7 x10^3/uL (4.0-11.0) Red Blood Count 4.12 x10^6/uL (4.30-5.70) Hemoglobin 12.5 g/dL (13.0-17.5) Hematocrit 36.0 % (39.0-53.0) Mean Corpuscular Volume 87 fL (79-100) Mean Corpuscular Hemoglobin 30 pg (25-35) Mean Corpuscular Hemoglobin Concent 35 g/dL (31-37) Red Cell Distribution Width 13.5 % (11.5-14.5) Platelet Count 175 x10^3/uL (140-400) Neutrophils (%) (Auto) 53 % (31-73) Lymphocytes (%) (Auto) 24 % (24-48) Monocytes (%) (Auto) 11 % (0-9) Eosinophils (%) (Auto) 12 % (0-3) Basophils (%) (Auto) 1 % (0-3) Neutrophils # (Auto) 2.5 x10^3/uL (1.8-7.7) Lymphocytes # (Auto) 1.1 x10^3/uL (1.0-4.8) Monocytes # (Auto) 0.5 x10^3/uL (0.0-1.1) Eosinophils # (Auto) 0.5 x10^3/uL (0.0-0.7) Basophils # (Auto) 0.1 x10^3/uL (0.0-0.2) Prothrombin Time 13.3 SEC (11.7-14.0) Prothromb Time International Ratio 1.1 (0.8-1.1) Activated Partial Thromboplast Time 27 SEC (24-38) Sodium Level 143 mmol/L (136-145) Potassium Level 4.1 mmol/L (3.5-5.1) Chloride Level 106 mmol/L (98-107) Carbon Dioxide Level 22 mmol/L (21-32) Anion Gap 15 (6-14) Blood Urea Nitrogen 27 mg/dL (8-26) Creatinine 1.0 mg/dL (0.7-1.3) Estimated GFR (Cockcroft-Gault) 71.9 BUN/Creatinine Ratio 27 (6-20) Glucose Level 243 mg/dL (70-99) Calcium Level 8.9 mg/dL (8.5-10.1) Total Bilirubin 0.4 mg/dL (0.2-1.0) Aspartate Amino Transf (AST/SGOT) 16 U/L (15-37) Alanine Aminotransferase (ALT/SGPT) 31 U/L (16-63) Alkaline Phosphatase 68 U/L (46-116) Creatine Kinase 135 U/L (39-308) Total Protein 6.6 g/dL (6.4-8.2) Albumin 3.6 g/dL (3.4-5.0) Albumin/Globulin Ratio 1.2 (1.0-1.7) Lipase 158 U/L (73-393) Urine Collection Type Unknown Urine Color Yellow Urine Clarity Clear Urine pH 5.5 (<5.0-8.0) Urine Specific [place] >=1.030 (1.000-1.030) Urine Protein Negative mg/dL (NEG-TRACE) Urine Glucose (UA) 100 mg/dL (NEG) Urine Ketones (Stick) Negative mg/dL (NEG) Urine Blood Negative (NEG) Urine Nitrite Negative (NEG) Urine Bilirubin Negative (NEG) Urine Urobilinogen Dipstick 0.2 mg/dL (0.2 mg/dL) Urine Leukocyte Esterase Negative (NEG) Urine RBC Rare /HPF (0-2) Urine WBC 0 /HPF (0-4) Urine Squamous Epithelial Cells Occ /LPF Urine Bacteria 0 /HPF (0-FEW) Allergies: Coded Allergies: No Known Drug Allergies (Unverified , 02/16/18) Medications: Current Medications Medications (Trade) Dose Ordered Sig/Dominique Route PRN Reason Start Time Stop Time Status Last Admin Dose Admin Ondansetron HCl (Zofran) 4 mg 1X ONCE IVP 09/15/20 20:00 09/15/20 20:01 DC 09/15/20 20:32 Pantoprazole Sodium (PROTONIX VIAL for IV PUSH) 40 mg 1X ONCE IVP 09/15/20 20:00 09/15/20 20:01 DC 09/15/20 20:32 Iohexol (Omnipaque 300 Mg/ml) 75 ml 1X ONCE IV 09/15/20 20:30 09/15/20 20:31 DC 09/15/20 20:24 Imaging: Imaging: CT A/P IMPRESSION: 1. No acute process identified within the abdomen or pelvis. 2. Subtle patchy tree-in-bud nodularity of the left lower lobe may be infectious or inflammatory in etiology. 3. Diverticulosis without evidence of acute diverticulitis. PE: GEN: NAD HEENT: Atraumatic, PERRL LUNGS: CTAB HEART: RRR ABD: NABS, S/ND/NT EXTREMITY: No edema SKIN: No rashes, no jaundice NEURO/PSYCH: A & O 3, forgetful A/P: A/P: Recurrent hematochezia/melena H/o radiation proctitis, diverticulosis, hemorrhoids H/o PUD - reportedly last year CAD on ASA -- Stable Hgb w/ elevated BUN, h/o "ulcer." Ate breakfast this morning, no recurrent bleeding, asking to DC. Will ask for [facility] scope records. Start PPI for reported h/o ulcer. Continue medical therapy. NAHUM CHOWDHURY Sep 16, 2020 09:28
[2020-09-16] MEDS: INSULIN LISPRO 300 UNITS/3 ML VIAL. SQ SCH ×2 (09:34→12:24)
[2020-09-16] MEDS ORDERED: PANTOPRAZOLE 40 MG TABLET.DR. PO SCH (09:45)
[2020-09-16 10:31] VITALS: BP 118/74
[2020-09-16 14:24] VITALS: BP 120/75
[2020-09-16 14:50] LABS: BASO % 1 % (0-3); EOS # 0.4 x10^3/uL (0.0-0.7); EOS % 9 % (0-3); HEMATOCRIT 35.1 % (39.0-53.0); HEMOGLOBIN 12.3 g/dL (13.0-17.5); LYMPH # 0.9 x10^3/uL (1.0-4.8); LYMPH % 21 % (24-48); MEAN CORPUSCULAR HEMOGLOBIN 31 pg (25-35); MEAN CORPUSCULAR HGB CONC 35 g/dL (31-37); MEAN CORPUSCULAR VOLUME 87 fL (79-100); MONO # 0.4 x10^3/uL (0.0-1.1); MONO % 9 % (0-9); NEUT # 2.6 x10^3/uL (1.8-7.7); NEUT % 61 % (31-73); PLATELET COUNT 184 x10^3/uL (140-400); RED BLOOD COUNT 4.03 x10^6/uL (4.30-5.70); RED CELL DISTRIBUTION WIDTH 13.9 % (11.5-14.5); WHITE BLOOD COUNT 4.3 x10^3/uL (4.0-11.0)
[2020-09-16 15:11] LABS: CALCIUM 8.9 mg/dL (8.5-10.1); CREATININE 1.1 mg/dL (0.7-1.3); GFR 64.4; POTASSIUM 3.9 mmol/L (3.5-5.1)
[2020-09-16] MEDS ORDERED: PANT40TA77 PO (15:59)
--- NOTE | 2020-09-16 16:45 | NUR ---
Pt. discharged to home, verbalized understanding of discharge instructions.
--- NOTE | 2020-09-16 17:36 | PDOC3 ---
[facility]-Discharge Summary Date of Admission: Date of Admission: Sep 15, 2020 Date of Discharge: Date of Discharge: Sep 16, 2020 Discharge Diagnosis: Discharge Diagnosis: Recurrent hematochezia/melena H/o radiation proctitis, diverticulosis, hemorrhoids H/o PUD - reportedly last year CAD on ASA Hospital Course: Hospital Course: 80 year old male with a possible history of hypertension, hyperlipidemia, diabetes, coronary artery disease now presents emergency department complaint of new onset of rectal bleeding. Patient states over the last 4 days he has been having issues with every time he has a bowel movement he notes that he passes mild amount of blood. Patient states initially was bright red but now he notes that he has been passing dark red clots. Patient states he had an issue approximately 2 years ago where came in for the same problem and ultimately unde rwent upper and lower endoscopy which found a ulcer in the duodenum. Currently denies any abdominal pain. Denies any nausea, vomiting, dizziness, lightheadedness. By time of discharge, patient did not have any more rectal bleeding and was tolerating diet. He will need outpatient EGD upper vs lower. Disposition: Disposition/Orders: D/C to Home Activity: Activity: Resume previous activity Diet: Diet: Soft Medications: Home Meds Reported Medications Pantoprazole Sodium (PROTONIX ) 40 Mg Tablet.dr, 40 MG PO DAILYAC for GERD, TAB 09/16/20 Aspirin (ASPIRIN) 81 Mg Tab.chew, 1 TAB PO DAILY for anti coagulation, #30 TAB 3 Refills 09/16/20 Ferrous Sulfate (IRON) 325 Mg Tablet, 325 MG PO DAILY for anemia 06/06/19 Lisinopril (LISINOPRIL) 10 Mg Tablet, 10 MG PO DAILY for FOR HYPERTENSION 12/05/18 Finasteride (FINASTERIDE) 5 Mg Tablet, 5 MG PO HS for Nocturia/prostate cancer 06/07/18 Metformin Hcl (METFORMIN HCL) 1,000 Mg Tablet, 1000 MG PO DAILYWSUP for diabetes 12/01/17 Atorvastatin Calcium (ATORVASTATIN CALCIUM) 10 Mg Tablet, 20 MG PO HS for HLD 11/04/14 Discontinued Reported Medications Pantoprazole Sodium (PROTONIX) 20 Mg Tablet.dr, 1 TAB PO DAILY for acid reflux, #30 TAB 09/16/20 Scheduled Aspirin (Aspirin), 1 TAB PO DAILY, (Reported) Atorvastatin Calcium (Atorvastatin Calcium), 20 MG PO HS, (Reported) Ferrous Sulfate (Iron), 325 MG PO DAILY, (Reported) Finasteride (Finasteride), 5 MG PO HS, (Reported) Lisinopril (Lisinopril), 10 MG PO DAILY, (Reported) Metformin Hcl (Metformin Hcl), 1,000 MG PO DAILYWSUP, (Reported) Pantoprazole Sodium (Protonix ), 40 MG PO DAILYAC, (Reported) Discontinued Medications Pantoprazole Sodium (Protonix), 1 TAB PO DAILY, (Reported) Total Time: Total Time: Total time spent was 35 minutes in preparing scripts, discharge planning with SW and RN, and preparing this discharge summary. Patient seen and examined on day of discharge. Justicifation of Admission Dx: Justifications for Admission: Justification of Admission Dx: Yes (GIB) QASIM WILDE MD Sep 16, 2020 17:36
== END 2020-09-16 17:05 | disposition home or self-care (01) ==
LOC: ER 18:56 → 4 NORTH 22:31
PROVIDERS: ADMIT Internal Medicine; ATTEND Internal Medicine
DX: K92.2 Gastrointestinal hemorrhage, unspecified (principal); R07.89 Other chest pain; C61 Malignant neoplasm of prostate; I25.10 Atherosclerotic heart disease of native coronary artery without angina pectoris; I10 Essential (primary) hypertension; E11.9 Type 2 diabetes mellitus without complications; E78.5 Hyperlipidemia, unspecified; E78.00 Pure hypercholesterolemia, unspecified; Z95.0 Presence of cardiac pacemaker; Z86.11 Personal history of tuberculosis; Z85.46 Personal history of malignant neoplasm of prostate; Z79.82 Long term (current) use of aspirin; Z79.84 Long term (current) use of oral hypoglycemic drugs; Z90.49 Acquired absence of other specified parts of digestive tract
CPT/HCPCS: 36415; 74177; 80048; 80053; 81001; 82550; 82962; 83690; 85025; 85610; 85730; 86850; 86900; 86901; 93005; 96361; 96374; 96375; 97116; 97162; 97165; 99285; C9113; G0378; J1815; J2405; J7030; Q9967; G0379

== ENCOUNTER → 2020-12-16 | Outpatient (CLI) | payer MEDICARE ==
[~2020-12-16] MED LIST changes: +PANT20TA2 PO; +PANT40TA77 PO
[2020-12-16 14:06] LABS: BASO % 1 % (0-3); EOS # 0.2 x10^3/uL (0.0-0.7); EOS % 5 % (0-3); HEMATOCRIT 35.5 % (39.0-53.0); HEMOGLOBIN 12.3 g/dL (13.0-17.5); LYMPH % 25 % (24-48); MEAN CORPUSCULAR HEMOGLOBIN 31 pg (25-35); MEAN CORPUSCULAR HGB CONC 35 g/dL (31-37); MEAN CORPUSCULAR VOLUME 89 fL (79-100); MONO # 0.4 x10^3/uL (0.0-1.1); MONO % 10 % (0-9); NEUT # 2.2 x10^3/uL (1.8-7.7); NEUT % 59 % (31-73); PLATELET COUNT 193 x10^3/uL (140-400); RED CELL DISTRIBUTION WIDTH 13.7 % (11.5-14.5); WHITE BLOOD COUNT 3.8 x10^3/uL (4.0-11.0)
[2020-12-16 14:34] LABS: CALCIUM 8.9 mg/dL (8.5-10.1); CREATININE 1.1 mg/dL (0.7-1.3); GFR 64.4; POTASSIUM 4.1 mmol/L (3.5-5.1)
[2020-12-16 14:54] LABS: ALBUMIN 3.6 g/dL (3.4-5.0); ALBUMIN/GLOBULIN RATIO 1.2 (1.0-1.7); TOTAL BILIRUBIN 0.6 mg/dL (0.2-1.0); TOTAL PROTEIN 6.6 g/dL (6.4-8.2)
[2020-12-18 18:14] LABS: PSA FREE <0.01 ng/mL; PSA TOTAL <0.1 ng/mL (0.0-4.0)
== END ==
LOC: ONCLAB 13:34
PROVIDERS: ATTEND Internal Medicine Hematology & Oncology
DX: C61 Malignant neoplasm of prostate (principal); D50.0 Iron deficiency anemia secondary to blood loss (chronic)
CPT/HCPCS: 36415; 80053; 82728; 83540; 83550; 84153; 84154; 85025

== ENCOUNTER → 2021-03-25 | Outpatient (CLI) | payer MEDICARE ==
[~2021-03-25] MED LIST changes: -DOXY100C2 PO; +DOXY100C3 PO
[2021-03-25 14:38] LABS: BASO % 1 % (0-3); EOS # 0.2 x10^3/uL (0.0-0.7); EOS % 5 % (0-3); HEMATOCRIT 34.8 % (39.0-53.0); HEMOGLOBIN 12.1 g/dL (13.0-17.5); LYMPH % 24 % (24-48); MEAN CORPUSCULAR HEMOGLOBIN 31 pg (25-35); MEAN CORPUSCULAR HGB CONC 35 g/dL (31-37); MEAN CORPUSCULAR VOLUME 90 fL (79-100); MONO # 0.4 x10^3/uL (0.0-1.1); MONO % 9 % (0-9); NEUT # 2.5 x10^3/uL (1.8-7.7); NEUT % 61 % (31-73); PLATELET COUNT 199 x10^3/uL (140-400); RED BLOOD COUNT 3.86 x10^6/uL (4.30-5.70)
[2021-03-25 14:53] LABS: CALCIUM 8.8 mg/dL (8.5-10.1); CREATININE 1.1 mg/dL (0.7-1.3); GFR 64.4; POTASSIUM 4.3 mmol/L (3.5-5.1)
[2021-03-25 15:06] LABS: ALBUMIN 3.7 g/dL (3.4-5.0); ALBUMIN/GLOBULIN RATIO 1.2 (1.0-1.7); TOTAL BILIRUBIN 0.5 mg/dL (0.2-1.0); TOTAL PROTEIN 6.8 g/dL (6.4-8.2)
== END ==
LOC: ONCLAB 14:16
PROVIDERS: ATTEND Internal Medicine Hematology & Oncology
DX: Z12.5 Encounter for screening for malignant neoplasm of prostate (principal); D50.0 Iron deficiency anemia secondary to blood loss (chronic)
CPT/HCPCS: 36415; 80053; 82728; 83540; 83550; 85025; G0103

== ENCOUNTER → 2021-06-25 | Outpatient (CLI) | payer MEDICARE ==
[2021-06-25 11:00] LABS: CALCIUM 9.1 mg/dL (8.5-10.1); CREATININE 1.1 mg/dL (0.7-1.3); GFR 64.2; POTASSIUM 4.6 mmol/L (3.5-5.1)
[2021-06-25 11:07] LABS: BASO % 1 % (0-3); EOS # 0.3 x10^3/uL (0.0-0.7); EOS % 8 % (0-3); HEMATOCRIT 37.2 % (39.0-53.0); HEMOGLOBIN 12.3 g/dL (13.0-17.5); LYMPH # 0.9 x10^3/uL (1.0-4.8); LYMPH % 27 % (24-48); MEAN CORPUSCULAR HEMOGLOBIN 30 pg (25-35); MEAN CORPUSCULAR HGB CONC 33 g/dL (31-37); MEAN CORPUSCULAR VOLUME 89 fL (79-100); MONO # 0.4 x10^3/uL (0.0-1.1); MONO % 11 % (0-9); NEUT # 1.8 x10^3/uL (1.8-7.7); NEUT % 54 % (31-73); PLATELET COUNT 208 x10^3/uL (140-400); RED BLOOD COUNT 4.16 x10^6/uL (4.30-5.70); RED CELL DISTRIBUTION WIDTH 13.6 % (11.5-14.5); WHITE BLOOD COUNT 3.5 x10^3/uL (4.0-11.0)
[2021-06-25 11:19] LABS: ALBUMIN 3.7 g/dL (3.4-5.0); TOTAL BILIRUBIN 0.6 mg/dL (0.2-1.0); TOTAL PROTEIN 7.4 g/dL (6.4-8.2)
== END ==
LOC: ONCLAB 10:30
PROVIDERS: ATTEND Internal Medicine Hematology & Oncology
DX: C61 Malignant neoplasm of prostate (principal); D50.0 Iron deficiency anemia secondary to blood loss (chronic)
CPT/HCPCS: 36415; 80053; 82728; 83540; 83550; 85025